=== PATIENT | male | born 1965 | race Caucasian/White ===

== ENCOUNTER → 2018-01-27 08:48 | Outpatient (CLI) | payer BC | END | disposition home or self-care (01) | LOC: D.NM 08:48 | DX: R10.11 Right upper quadrant pain (principal) ==

== ENCOUNTER 2018-07-06 09:54 | Inpatient (IN) | payer BC ==
[~2018-07-06] VITALS: Ht 182.9 cm; Wt 85.7 kg
--- NOTE | ~2018-07-06 | OP ---
PATIENT NAME: CHAIM MENDOZA MEDICAL RECORD: [id number] :67 LOCATION:D[id number] ADMISSION DATE:07/06/18 SURGEON: SARAH BEAVER MD DATE OF OPERATION: 07/06/2018 PREOPERATIVE DIAGNOSES: Severe degenerative disc disease at L5-S1 with segmental instability at L5-S1. POSTOPERATIVE DIAGNOSES: Severe degenerative disc disease at L5-S1 with segmental instability at L5-S1. PROCEDURE: Anterior lumbar interbody fusion at L5-S1 with anterior lumbar plate and screws, interbody cage with PEEK cage from the Zavation spine, bone allograft with bone stem cells using Cindi DBM with viable cells, Zavation 13 mm cages, 15 degrees lordosis and 33 mm wide, 30 mm screws. CO-SURGEONS: Sarah Beaver MD and Cordell Akins MD DESCRIPTION OF TECHNIQUE: After Dr. Akins exposed the anterior lumbar spine and incised the L5-S1 interspace, prepared the endplates with curettes and Haskins elevators, trialed several trials until an appropriate size cage was determined to be a 30 mm height cage with 33 mm wide and 15 degrees lordosis, good position of the cage was confirmed with a fluoroscopic x-ray. Prior to placing the cage in the interspace, the endplates were prepared with curettes and bone stem cells were placed in the inner portion of the cage. The 30 mm screws were placed through the holes in the plate, which anchored the cage in place. The locking cams were tightened down over the screw heads. Meticulous hemostasis was maintained throughout the wound. The wound was then closed by Dr. Akins. The patient tolerated the procedure well, was taken to recovery. All counts were reported as correct. Estimated blood loss was minimal. TRANSINT:[id number] Voice Confirmation ID: [id number] DOCUMENT ID: [id number] SARAH BEAVER MD at 2051 CC: [id number] DICTATION DATE: 07/06/18 2315 WASH OIL PUMP OPERATOR HELPER: 07/07/18 0159 ADM IN [address] [place] [address]
--- NOTE | ~2018-07-06 | OP ---
PATIENT NAME: CHAIM MENDOZA MEDICAL RECORD: [id number] :67 LOCATION:D.[facility] ADMISSION DATE:07/06/18 SURGEON: CESAR BUENO MD DATE OF OPERATION: 07/06/2018 This is a cosurgeon case. PREOPERATIVE DIAGNOSES: Severe degenerative disc disease at L5-S1 with segmental instability at L5-S1. POSTOPERATIVE DIAGNOSES: Severe degenerative disc disease at L5-S1 with segmental instability at L5-S1. PROCEDURE: Anterior approach for lumbar interbody fusion at L5-S1. This is a cosurgeon case. The neurosurgeon was Dr. Demetrio Hill. The access general surgeon was Dr. Cesar Bueno. For the description of the construct please see Dr. Hill's note. I was present through the entire operation from the initial skin incision to the final closure. I never left the operating room and was present and assisted Dr. Hill during insertion of the construct. DESCRIPTION OF THE PROCEDURE: The patient was conveyed to the operating room electively on 07/06/2018. General anesthesia was induced by the anesthesia staff. The abdomen was sterilely prepped and draped. Utilizing the C-arm and visualizing the lower lumbar spine laterally, we identified the L5-S1 interspace and utilizing a metallic marker, we identified the angulation of the L5-S1 interspace and where this under fluoroscopy met the anterior abdominal wall skin. This aided me in guiding my incision for approach to the L5-S1 disc space. This was marked on the patient's abdomen. An incision was accomplished in the midline and this was a transverse incision. Sharp dissection was carried down through skin and subcutaneous tissue as well as Suly's fascia. The linea alba was incised in the midline. I then elevated the left rectus abdominis muscle. Creating an extraperitoneal plane, I continued around on the left side. The round ligament was identified and divided. The transversalis fascia was identified and divided. I elevated the epigastric vein. The visceral sac was then pulled to the left. I identified the ureter. The iliac artery and vein were identified. The ureter was protected and undamaged through the entire operation. I identified the L5-S1 disc space. The MARS retractor was then fixated above the incision and the retractor blades were placed. We elevated the bifurcation of the inferior vena cava as well as both common iliac veins. This exposed the L5-S1 disc space. The median sacral vein was cauterized with the bipolar cautery. Dr. Hill then inserted a needle into the L5-S1 disc space and this disc space was confirmed radiographically. I was present and retracted venous structures away from Dr. Hill's operative field while he performed the discectomy and placement of the spinal construct. I was with him during this entire procedure and assisted him with retraction of tissue away from his operative site. Once he was finished with insertion of the construct and was satisfied with how it appeared radiographically, I went about closing the abdomen. I released the retractors. There was no bleeding. I identified the left ureter and it was undamaged during the procedure. I noted no evidence of a DVT in the left iliac venous system. There appeared to have been no intestinal injury. No injury to the bladder. OPERATIVE REPORT [id number] CHAIM MENDOZA The linea alba was closed in the midline with a running looped 0 PDS from the cephalad and caudad directions. Suly's fascia was approximated with interrupted 3-0 Vicryls. The subdermis was approximated with interrupted 3-0 Vicryls. The skin was approximated with a running intracuticular 3-0 Vicryl. Benzoin and Steri-Strips were applied. The patient was then extubated and conveyed to post-anesthesia care unit where he was in stable condition. TRANSINT:[id number] Voice Confirmation ID: [id number] DOCUMENT ID: [id number] CESAR BUENO MD at 1004 CC: [id number] DICTATION DATE: 07/09/18 0850 CURVE SAW OPERATOR: 07/09/18 0938 DIS IN 07/08/18 [id number] [place] [address]
[2018-07-06] MEDS ORDERED: CELEBREX200 MG PO (11:02)
[2018-07-06] MEDS ORDERED: ENDOCET 10-3251 TAB PO (11:03)
[2018-07-06] MEDS ORDERED: HYDROCODON-ACE1 EAC7 PO (11:04)
[2018-07-06] MEDS ORDERED: NEXIUM20 MG PO (11:05)
[2018-07-06] MEDS ORDERED: FOLBIC RF TABL1 EACH PO (11:06)
[2018-07-06 11:32] LABS: HEMATOCRIT 48.2 % (42.0-54.0); HEMOGLOBIN 17.5 g/dL (13.5-17.5); MCH 36.2 pg (26.0-34.0); MCHC 36.3 g/dL (31.0-37.0); MCV 99.8 fL (80.0-100.0); RBC 4.83 10x6/uL (4.20-6.10); RDW 13.3 % (11.5-14.5); WBC 6.5 10x3/uL (4.8-10.8)
[2018-07-06 11:40] VITALS: BP 161/87; BMI 25.8
[2018-07-06 23:45] VITALS: BP 154/91
[2018-07-07] VITALS (13 sets, daily range): BP systolic 103–155; BP diastolic 71–95; Ht 182.9 cm; Wt 85.7 kg
[2018-07-08 04:00] VITALS: BP 145/75
[2018-07-08] MEDS ORDERED: HYDROCODONE-APA1 TAB PO (08:32)
[2018-07-08 08:40] VITALS: BP 130/62
== END 2018-07-08 10:37 | disposition home or self-care (01) | DRG 460 ==
LOC: D.OPS 09:54 → D.PAN 12:15 → D.CVICU 22:12 → D.OPS 22:13 → D.CVICU 22:13 → D.MS 22:13
PROVIDERS: Anesthesiology; Neurological Surgery
PROC: 0SG30A0 Fusion of Lumbosacral Joint with Interbody Fusion Device, Anterior Approach, Anterior Column, Open Approach (ICD-10-PCS; principal; 2018-07-06 12:15)
DX: M51.37 Other intervertebral disc degeneration, lumbosacral region (principal); M53.2X7 Spinal instabilities, lumbosacral region; K21.9 Gastro-esophageal reflux disease without esophagitis; Z72.89 Other problems related to lifestyle; G89.29 Other chronic pain; F17.200 Nicotine dependence, unspecified, uncomplicated

== ENCOUNTER 2019-02-17 09:47 | Day surgery (SDC) | payer BC ==
[~2019-02-17] VITALS: Ht 182.9 cm; Wt 83.9 kg
--- NOTE | ~2019-02-17 | OP ---
PATIENT NAME: CHAIM MENDOZA MEDICAL RECORD: [id number] :67 LOCATION:[facility] ADMISSION DATE: SURGEON: SARAH HILL MD DATE OF OPERATION: 02/17/2019 PREOPERATIVE DIAGNOSES: Lumbar spinal stenosis and foraminal stenosis, L5-S1 left secondary to disc protrusion L5-S1, left. 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 SURGEON: Sarah Hill MD PROCEDURES: Lumbar laminotomy, medial facetectomy, and foraminotomy at L5-S1 on the left with METRx retractor system. DESCRIPTION AND TECHNIQUE: After induction of general endotracheal anesthesia, the patient was rolled prone on a Woody frame. Lumbar spine was prepped and draped in the usual sterile fashion. Fluoroscopic x-ray and spinal needle localized the L5-S1 interspace on the left side. A stab incision was created with #11 blade and a series of dilators were used to advance a METRx retractor to the L5-S1 interspace on the left side. Level was confirmed with fluoroscopic x-ray. A microscope and Midas Colton drill were used to perform laminotomy, medial facetectomy and foraminotomy at L5-S1 on the left. Hypertrophied ligamentum flavum was removed with Cloward rongeurs. Following this, the S1 nerve root was identified and found to be encased in scar tissue. This was removed with Cloward rongeurs and microdissectors. The L5-S1 disc space was explored. There is a disc protrusion just deep to the left L5-S1 nerve root. This was freed from the nerve root with microdissection and microscopic illumination and disc space was incised and disc material was removed with pituitary rongeurs. Following anesthesia, the S1 nerve root appeared to be completely free of scar tissue. Meticulous hemostasis was maintained throughout the wound. The wound was irrigated with copious amounts of Ancef irrigant solution. The retractor was removed. The fascia was closed with 2-0 Vicryl suture, the subdermal layer was closed with suture. The skin was closed with nneka. A sterile dressing was applied to the wound. The patient was awakened in good condition and taken to the recovery. All counts were reported as correct. Estimated blood loss was minimal. TRANSINT:[id number] Voice Confirmation ID: [id number] DOCUMENT ID: [id number] OPERATIVE REPORT [id number] CHAIM MENDOZA JOHN MD CC: [id number] DICTATION DATE: 03/07/192148 DIET ATTENDANT: 03/08/19 0029 [facility] SDC 02/17/19 [address] [place] [address]
[~2019-02-17 09:47] MED LIST: CELEBREX200 MG PO; ENDOCET 10-3251 TAB PO; FOLBIC RF TABL1 EACH PO; HYDROCODON-ACE1 EAC7 PO; HYDROCODONE-APA1 TAB PO; NEXIUM20 MG PO
[2019-02-17 11:03] VITALS: BP 118/74; Ht 182.9 cm; Wt 83.9 kg
--- NOTE | 2019-02-17 15:05 | NUR ---
NO NUMBNESS OR TINGLING REPORTED EQUAL STRENGHTS BOTH LOWER EXTREMETIES
== END 2019-02-17 16:38 | disposition home or self-care (01) ==
LOC: D.OPS 09:47
PROVIDERS: ATTEND Neurological Surgery
DX: M48.061 Spinal stenosis, lumbar region without neurogenic claudication (principal); M51.26 Other intervertebral disc displacement, lumbar region

== ENCOUNTER → 2019-03-09 10:28 | Outpatient (CLI) | payer BC ==
[2019-02-17 11:03] VITALS: BMI 25.1
== END | disposition home or self-care (01) ==
LOC: D.CT 10:28
PROVIDERS: ATTEND Surgery
DX: I73.9 Peripheral vascular disease, unspecified (principal)

== ENCOUNTER 2019-03-23 11:20 | Outpatient (CLI) | payer BC ==
[~2019-03-23] VITALS: Ht 182.9 cm; Wt 81.8 kg
--- NOTE | ~2019-03-23 | HEMODYNAMI ---
PATIENT:CHAIM MENDOZA MEDICAL RECORD: [id number] : 67 LOCATION:[facility] ADMISSION DATE: 03/23/19 Generatedon:03/23/201914:50 Patient name: CHAIM MENDOZA Patient #: [id number] SSN: : 1965 Date of study: 03/23/2019 Page: Of Hemodynamic Procedure Report Patient Data Patient Demographics Procedure consent was obtained First Name: CHAIM Gender: Male Last Name: KELLY : 1965 [facility] Initial: EJ Age: 53 year(s) Patient #: [id number] Race: Unknown Additional ID: [id number] Contact details Address: [address] [place] [address] ROAD State: [place] City: [place] Zip code: [address] Past Medical History Allergies: No known allergies Admission Admission Data Admission Date: 03/23/2019 Admission Time: 11:20 Weight (lbs.): 188 Weight (kg.): 85.28 Lab Results Lab Result Date: 03/23/2019 Lab Result Time: 0:00 Biochemistry Name Units Result Min Max BUN mg/dl 10 --(-*--)-- 7 18 Creatinine mg/dl 0.8 --(-*--)-- 0.6 1.3 CBC Name Units Result Min Max Hematocrit % 44.6 --(*---)-- 42 54 Hemoglobin g/dl 15.7 --(--*-)-- 13.5 17.5 Procedure Procedure Types Cath Procedure Diagnostic Procedure LHC LHC w/Coronaries Peripheral Cath Diagnostic Procedure Candy Cooker Helper Peripheral Procedures Zpqxn-Qrtlysz-Svb-Off Procedure Description Procedure Date Procedure Date: 03/23/2019 Procedure Start Time: 14:32 Procedure End Time: 14:50 Procedure Staff Name Function Vincent Rao MD Performing Physician Elly Houston RT Monitor Lev Bansal RT Monitor Santiago Cook RT Scrub Gallo Dennis RN Nurse Procedure Data Cath Procedure Fluoroscopy Diagnostic fluoroscopy Total fluoroscopy Time: 2.1 time: 2.1 min min Diagnostic fluoroscopy Total fluoroscopy dose: 610 dose: 610 mGy mGy Contrast Material Contrast Material Type Amount (ml) Isovue 300 165 Entry Location Entry Primary Successful Side Size Upsize Upsize Entry Closure Succes sful Closure Location (Fr) 1 (Fr) 2 (Fr) Remarks Device Remarks Femoral Right 5 Fr Exoseal artery Estimated blood loss: 10 ml Diagnostic catheters Device Type Used For End Catheter Placement MULTIPACK JL 4.0 5Fr Procedure catheter MULTIPACK 3DRC 5Fr Procedure catheter MULTIPACK Pigtail 5 Fr Procedure catheter Procedure Complications No complications Procedure Medications Medication Administration Route Dosage 0.9% NaCl I.V. 100 ml/hr Oxygen etCO2 Nasal cannula 2 l/min Heparin Flush Bag added to field 2 bags (1000units/500ml NS) Lidocaine 2% added to field 20 Versed I.V. 1 mg Fentanyl I.V. 50 mcg Versed I.V. 1 mg Hemodynamics Rest HGB: 15.7 (g/dl) Heart Rate: 65 (bpm) Pressure Samples Time Site Value (mmHg) Purpose Heart Use Rate(bpm) 14:34 AO 130/71(96) Snapshot 80 14:38 LV 136/-9,15 Snapshot 85 14:42 AO 121/67(93) Snapshot 85 Snapshots Pre Cath Intra NCS Post Cath Vital Signs Time Heart Resp SPO2 etCO2 NIBP (mmHg) Rhythm Pain Sedation Rate (ipm) (%) (mmHg) Status Level (bpm) 14:13:18 66 14 100 0 165/81(135) NSR 0 (11) 10(A) , No pain 14:17:36 73 13 100 34.4 148/81(114) NSR 0 (11) 10(A) , No pain 14:21:52 76 12 100 34.4 146/82(110) NSR 0 (11) 10(A) , No pain 14:26:06 77 12 100 32.9 135/86(113) NSR 0 (11) 10(A) , No pain 14:30:18 73 21 100 29.2 144/81(117) NSR 0 (11) 10(A) , No pain 14:34:32 77 15 100 32.9 137/85(111) NSR 0 (11) 10(A) , No pain 14:38:46 85 18 99 31.4 136/78(102) NSR 0 (11) 10(A) , No pain 14:42:58 87 20 99 32.2 133/76(106) NSR 0 (11) 9(A) , No pain 14:47:10 80 15 100 32.9 138/78(111) NSR 0 (11) 9(A) , No pain Medications Time Medication Route Dose Verified Delivered Reason Notes Eff ectiveness by by 14:11:32 0.9% NaCl I.V. 100 Gallo Gallo Per ml/hr Sonny Dennis physician RN RN 14:11:43 Oxygen etCO2 2 Gallo Gallo for low 02 Nasal l/min Lorigan Lorigan sats cannula RN RN 14:11:54 Heparin Flush added 2 Gallo Gallo used for Bag to bags Lorigan Lorigan procedure (1000units/500ml field RN RN NS) 14:12:04 Lidocaine 2% added 20ml Gallo Gallo for local to vial Lorigan Lorigan anesthetic field RN RN 14:31:56 Versed I.V. 1 mg Gallo Gallo for Lorigan Lorigan sedation RN RN 14:32:04 Fentanyl I.V. 50 Gallo Gallo for mcg Lorigan Lorigan sedation RN RN 14:33:22 Versed I.V. 1 mg Gallo Gallo for Lorigan Lorigan sedation RN wedding coordinator Log Time Note 13:35:56 Signed procedure consent form obtained from patient. 13:35:57 Diagnostic Cath status Elective 13:35:58 Time tracking: Regular hours (M-F 7:00 - 5:00) 13:36:02 Plan of Care:Hemodynamics will remain stable., Cardiac rhythm will remain stable., Comfort level will be maintained., Respiratory function will remain adequate., Patient/ family verbilizes understanding of procedure., Procedure tolerated without complication., Recovers from procedure without complications.. 13:36:10 H&P Date Dictated: 03/18/2019 Within 30 days and on chart., H&P Addendum completed by physician on day of procedure. (MUST COMPLETE FOR ALL OUTPATIENTS). 13:38:40 Patient Weight : 188 lbs 13:39:15 Patient allergic to No known allergies 13:39:51 Lab Result : BUN 10 mg/dl 13:39:51 Lab Result : Hemoglobin 15.7 g/dl 13:39:51 Lab Result : Creatinine 0.8 mg/dl 13:39:51 Lab Result : Hematocrit 44.6 % 13:54:24 Gallo Dennis RN sent for patient. Start room use. 14:04:11 Patient received from Pre/Post Procedure Room to CCL 2 Alert and oriented. Tansferred to table in Supine position. 14:04:13 Warm blankets applied, and blake hugger turned on for patient comfort. 14:04:14 Correct patient and procedure confirmed by team. 14:04:15 ECG and BP/O2 sat monitors applied to patient. 14:11:32 0.9% NaCl 100 ml/hr I.V. was administered by Gallo Dennis RN; Per physician; 14:11:43 Oxygen 2 l/min etCO2 Nasal cannula was administered by Gallo Dennis RN; for low 02 sats; 14:11:54 Heparin Flush Bag (1000units/500ml NS) 2 bags added to field was administered by Gallo Dennis RN; used for procedure; 14:12:04 Lidocaine 2% 20ml vial added to field was administered by Gallo Dennis RN; for local anesthetic; 14:12:08 Vital chart was started 14:13:12 Baseline sample Acquired. 14:13:18 Rhythm: sinus rhythm 14:13:18 Full Disclosure recording started 14:13:19 Pre-procedure instructions explained to patient. 14:13:19 Pre-op teaching completed and patient verbalized understanding. 14:13:21 Family in patients room. 14:13:22 Patient NPO since Midnight. 14:13:24 Is patient on blood thinner?No 14:13:25 Patient diabetic? No. 14:13:29 Previous problem with sedation/anesthesia? No ? 14:13:31 Snore? Yes 14:13:31 Sleep apnea? No 14:13:32 Deviated septum? No 14:13:33 Opens mouth fully? Yes 14:13:34 Sticks out tongue? Yes 14:13:36 Airway obstruction? No ? 14:13:38 Dentures? No ? 14:13:41 Pre procedure: right dorsailis pedis pulse 1+ Palpable, but thready & weak; easily obliterated 14:13:45 Pre procedure: left dorsailis pedis pulse Doppler 14:13:47 Patient pain scale 0/10 ?. 14:13:49 IV patent on arrival in left hand with 0.9% NaCl at O. 14:13:51 Lab results completed and on chart. 14:13:57 Bilateral groins area was prepped with chlora-prep and draped in sterile fashion 14:13:58 Alarms reviewed by R. N. 14:13:59 Sharps counted by scrub and verified by R.N. 14:14:02 Use device set Femoral Dx 14:14:03 ACIST Syringe (32129) opened to sterile field. 14:14:04 Bag Decanter (2002S) opened to sterile field. 14:14:05 ACIST Hand Control (92701) opened to sterile field. 14:14:06 ACIST Manifold (91442) opened to sterile field. 14:14:06 Tegaderm 4 x 4 (1626W) opened to sterile field. 14:14:10 Medline Cath Pack ([id number]) opened to sterile field. 14:14:11 DIAGNOSTIC WIRE .035 260cm J wire (238879) opened to sterile field. 14:14:12 DIAGNOSTIC Multipack 5Fr catheter set (TE5752) opened to sterile field. 14:14:13 SHEATH 5FR [place] (MXT487) opened to sterile field. 14:20:50 Procedure type changed to Cath procedure, Diagnostic procedure, LHC, LHC w/Coronaries, Peripheral Cath Diagnostic Procedure, Candy Cooker Helper Peripheral Procedures, Heyjg-Nwaunbt-Fzl-Off 14:27:51 --------ALL STOP TIME OUT------ 14:27:52 Final Timeout: patient, procedure, and site verified with staff and physician. All members of the team are in agreement. 14:28:21 Right groin site verified by team. 14:28:26 Maximum allowable Isovue 300 dose 300ml. Physician notified. (300ml for normal creatinines. For patients with creatinine of 1.7 or higher multiply weight(kg) x 5 divided by creatinine.) 14:28:31 Fire Safety Assessment: A--An alcohol-based skin anteseptic being used preoperatively., C--Open oxygen or nitrous oxide is being used., D--An ESU, laser, or fiber-optic light is being used. 14:28:34 Physical assessment completed. ASA score P 2 - A patient with mild systemic disease as per Vincent Rao MD. 14:28:39 Sedation plan: IV Moderate Sedation Medication:Versed, Fentanyl 14:29:24 Zero performed for pressure channel P1 14:31:56 Versed 1 mg I.V. was administered by Gallo Dennis RN; for sedation; 14:32:04 Fentanyl 50 mcg I.V. was administered by Gallo Dennis RN; for sedation; 14:32:42 Procedure started. 14:32:45 Local anesthetic to right femoral artery with Lidocaine 2% by Vincent Rao MD.INITIAL ACCESS ONLY 14:33:22 Versed 1 mg I.V. was administered by Gallo Dennis RN; for sedation; 14:33:27 A 5 Fr sheath was inserted into the Right Femoral artery 14:33:39 A MULTIPACK JL 4.0 5Fr catheter was advanced over the wire and used for Procedure. 14:34:50 LCA angiography performed. 14:35:57 Catheter removed. 14:36:29 A MULTIPACK 3DRC 5Fr catheter was advanced over the wire and used for Procedure. 14:36:57 RCA angiography performed. 14:37:40 Catheter removed. 14:37:50 A MULTIPACK Pigtail 5 Fr catheter was advanced over the wire and used for Procedure. 14:40:10 LV angiography performed. 14:40:50 LV gram done using MASON 14:40:55 EF : 55 % 14:41:09 LV hemodynamics recorded. 14:41:11 Injector settings: Ml/sec: 10, Volume: 20, 14:41:37 Left leg occluded at bifurcation. 14:42:00 Right leg runoff performed. 14:45:35 Catheter removed. 14:45:37 EXOSEAL 5Fr (EX500) opened to sterile field. 14:45:46 Sheath removed intact; hemostasis achieved with Exoseal to the Right Femoral artery. 14:46:04 Procedure ended.(Physican Out) 14:46:30 Fluoroscopy time 02.10 minutes. 14:46:34 Fluoroscopy dose: 610 mGy 14:46:34 Flurop Dose total: 610 14:46:50 Contrast amount:Isovue 300 165ml. 14:46:51 Sharps counted by scrub and verified by R.N. 14:46:52 Insertion/operative site no bleeding no hematoma. 14:46:58 Post-op/insertion site Right Femoral artery dressed using a 4 x 4 and Tegaderm. 14:46:59 Post Procedure Pulses reassessed and unchanged 14:47:02 Post-procedure physical assessment completed. ASA score P 2 - A patient with mild systemic disease as per Vincent Rao MD. 14:47:05 Post procedure rhythm: unchanged. 14:47:07 Estimated blood loss: 10 ml 14:47:09 Post procedure instruction explained to patient.Patient verbalizes understanding. 14:47:09 Patient needs reinforcement of post procedure teaching. 14:47:11 Procedure and supply charges have been captured, reviewed, submitted and are correct. 14:47:28 Procedure Complication : No complications 14:47:31 Vital chart was stopped 14:47:31 See physician's report for complete and final results. 14:47:36 Report given to Pre/Post Procedure Room. 14:47:40 Patient transfered to PCU with Stretcher. 14:50:14 Procedure ended. 14:50:14 Full Disclosure recording stopped 14:50:23 End room use (Document Last) Device Usage Item Name Manufacture Quantity Catalog Hospital Part Current Minimal L ot# / Number Charge Number Stock Stock Serial# Code ACIST Acist 1 [id number] 071914 950422 736292 20 Syringe Medical (48442) Systems Inc Bag Microtek 1 2001S 275312 79105 905368 5 Decanter Medical Inc. (2001S) ACIST Hand Acist 1 35232 813577 379476 036460 5 Control Medical (85927) Systems Inc ACIST Acist 1 15890 469859 816269 147253 5 Manifold Medical (64920) Systems Inc Tegaderm 4 3M 1 1626W 356786 706669 233473 5 x 4 (1626W) Medline Medline 1 [id number] 377424 18761 091164 5 Cath Pack ([id number]) DIAGNOSTIC [facility] 1 626334 095945 517244 036194 30 WIRE .035 260cm J wire (772047) DIAGNOSTIC Cardinal 1 KX9593 728570 27965 053449 30 Multipack Health 5Fr catheter set (WR6974) SHEATH 5FR Terumo 1 TVM706 891688 247112 774196 5 [place] (JCO773) MULTIPACK Cardinal 1 998916 5 JL 4.0 5Fr Health catheter MULTIPACK Cardinal 1 942939 5 3DRC 5Fr Health catheter MULTIPACK Cardinal 1 040965 5 Pigtail 5 Health Fr catheter EXOSEAL 5Fr Cardinal 1 EX500 605827 371224 467600 10 (EX500) Health Signature Audit [place] Stage Time Signature Unsigned Intra-Procedure 03/23/2019 Lev Bansal 2:50:51 PM RT(R) Signatures Monitor : Elly Houston Signature : RT Date : Time : Monitor : Lev Bansal RT Signature : Date : Time : [address] [place] [address]
--- NOTE | ~2019-03-23 | OP ---
PATIENT NAME: CHAIM MENDOZA MEDICAL RECORD: [id number] :67 LOCATION:D.CAT ADMISSION DATE: SURGEON: JENNIFER BHAGAT MD DATE OF OPERATION: 03/23/2019 PROCEDURE: Left heart catheterization, selective coronary angiography plus AFRO, right femoral artery approach. CATHETERS: A 5-Finnish sheath, 5/4 left and right Sarbjit, 5/4 pig. The procedure was well tolerated. The patient was returned to florian. Sheath was removed. ExoSeal device was placed. FINDINGS: Left ventriculography in 30-degree MASON view: Normal wall motion. Normal systolic function. CORONARY ANATOMY: LEFT MAIN: Left main is free of disease. LAD: It has luminal irregularities, but no flow obstructive disease. CIRCUMFLEX: Circumflex to OM system is free of significant disease. RIGHT CORONARY ARTERY: Again, luminal irregularity. No flow obstructive disease. Catheter was then withdrawn proximally to the level of the renal arteries and AFRO was performed. Abdominal aorta shows no evidence of dissection, no significant atherosclerotic disease, and no evidence of aneurysm. RIGHT ILIAC SYSTEM: Right iliac system including internal and external is free of disease. Right femoral system including common, superficial, and deep are widely patent with good 2-vessel runoff distally. LEFT SYSTEM: Left iliac is totally occluded at its proximal portion. This is a flush occlusion without pathway for guidewire and interventional wires. There is late filling distally. 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 This does not appear amenable to percutaneous revascularization from a cardiovascular standpoint. TRANSINT:[id number] Voice Confirmation ID: [id number] DOCUMENT ID: [id number] JENNIFER BHAGAT MD CC: [id number] DICTATION DATE: 03/23/19 1500 BDR: 03/23/19 1841 DEP CLI 03/23/19 [facility] [address] [place] [id number]
[2019-03-23 11:46] VITALS: BP 149/74; Ht 182.9 cm; Wt 81.8 kg
[2019-03-23 12:03] LABS: BASOPHILS 0.3 % (0-2); EOSINOPHILS 2.1 % (0-7); HEMATOCRIT 44.6 % (42.0-54.0); HEMOGLOBIN 15.7 g/dL (13.5-17.5); IMMATURE GRANULOCYTES 0.2 % (0-5); LYMPHOCYTES 35.5 % (15-50); MCH 32.2 pg (26.0-34.0); MCHC 35.2 g/dL (31.0-37.0); MCV 91.6 fL (80.0-100.0); MEAN PLATELET VOLUME 8.8 fL (7.4-10.4); MONOCYTES 11.1 % (2-11); NEUTROPHILS 50.8 % (40-80); PLATELET COUNT 258 10x3/uL (130-400); RBC 4.87 10x6/uL (4.20-6.10); WBC 6.6 10x3/uL (4.8-10.8)
[2019-03-23 12:21] LABS: CALC OSMOLALITY 278 mosm/kg (275-300); CALCIUM 8.9 mg/dL (8.5-10.1); CARBON DIOXIDE 25.7 mmol/L (21.0-32.0); CHLORIDE - SERUM 103 mmol/L (98-107); CREATININE - SERUM 0.8 mg/dL (0.6-1.3); GLUCOSE 118 mg/dL (74-106); SODIUM 140 mmol/L (136-145); UREA NITROGEN 10 mg/dL (7-18); eGFR NON AFRICAN AMERICAN > 90 mL/min (90-120)
--- NOTE | 2019-03-23 15:05 | NUR ---
RECIEVED TO ROOM VIA STRETCHER FROM [facility] CREWMEMBER WITH 5 FR EXOSEAL R/GROIN CDI NO BLEEDING OR HEMATOMA NOTED. INSTRUCTED PATIENT TO KEEP HEAD FLAT ON PILLOW WITH RLE STRAIGHT.
--- NOTE | 2019-03-23 15:14 | NUR ---
5 FR EXOSEAL R/GROIN IS CDI WITH VSS PATIENT DENIED NEEDS AT THIS TIME. INSTRUCTED PATIENT TO KEEP HEAD FLAT ON PILLOW WITH RLE STRAIGHT
--- NOTE | 2019-03-23 15:21 | NUR ---
5 FR EXOSEAL R/GROIN REMAINS CDI WITH CHEST PAIN DENIED. INSTRUCTED PATIENT TO KEEP HEAD FLAT ON PILLOW WITH RLE STRAIGHT. CALL LIGHT IN REACH
--- NOTE | 2019-03-23 15:48 | NUR ---
PATIENT RESTING QUIETLY WITH EYES CLOSED HR 69 BP 112/63. 5 FR EXOSEAL R/GROIN IS CDI NO BLEEDING OR HEMATOMA. CALL LIGHT IN REACH
--- NOTE | 2019-03-23 15:53 | NUR ---
REPOSITIONED TO [facility] UP 30 FOR COMFORT. SANDWICH AND SODA TO BEDSIDE WITH NAUSEA DENIED
--- NOTE | 2019-03-23 16:24 | NUR ---
LEFT ARM PIV D/C'D WITH CATH TIP INTACT. PT TOLERATED WELL. VSS. PT INSTRUCTED TO GET UP AND DRESSED. RIGHT GROIN DRESSING C/D/I. NO S/S OF HEMATOMA NOTED.
--- NOTE | 2019-03-23 16:35 | NUR ---
DISCUSSED DISCHARGE INSTRUCTIONS WITH PT AND PT'S FAMILY. THEY VOICED UNDERSTANDING. RIGHT GROIN DRESSING C/D/I. NO S/S OF HEMATOMA NOTED. PT AMBULATED TO RESTROOM AND VOIDED WITHOUT DIFFICULTY. STEADY GAIT NOTED.
--- NOTE | 2019-03-23 16:40 | NUR ---
PT TAKEN OUT TO CAR BY WHEELCHAIR. NO S/S OF DISTRESS NOTED. ALL BELONGINGS AND PAPERWORK IN HAND.
== END 2019-03-23 16:40 | disposition home or self-care (01) ==
LOC: D.CATH 11:20
PROVIDERS: ATTEND Internal Medicine Interventional Cardiology
DX: I70.212 Atherosclerosis of native arteries of extremities with intermittent claudication, left leg (principal); Z01.812 Encounter for preprocedural laboratory examination

== ENCOUNTER 2019-04-06 07:26 | Outpatient (CLI) | payer BC ==
[~2019-04-06] VITALS: Ht 182.9 cm; Wt 81.8 kg
[2019-04-06] VITALS (13 sets, daily range): BP systolic 127–149; BP diastolic 52–86; BMI 24.4
--- NOTE | ~2019-04-06 | HEMODYNAMI ---
PATIENT:MAXIMO MENDOZA MEDICAL RECORD: [id number] : 67 [facility] ADMISSION DATE: 04/06/19 Generatedon:04/06/201916:38 Patient name: MAXIMO MENDOZA Patient #: [id number] SSN: : 1965 Date of study: 04/06/2019 Page: Of Hemodynamic Procedure Report Patient Data Patient Demographics Procedure consent was obtained First Name: MAXIMO Gender: Male Last Name: KELLY : 1965 Middle Initial: EJ Age: 53 year(s) Patient #: [id number] Race: Unknown Additional ID: [id number] Contact details Address: [address] [place] [address] ROAD State: [place] City: [place] Zip code: [address] Past Medical History Allergies: No known allergies Admission Admission Data Admission Date: 04/06/2019 Admission Time: 7:26 Room #: [facility] Procedure Procedure Types Cath Procedure Peripheral Cath Diagnostic Procedure Abd/Extremity Extremities Procedure Description Procedure Date Procedure Date: 04/06/2019 Procedure Start Time: 15:52 Procedure Staff Name Function Breezy Del Rio RT Monitor Maximo Adames MD Performing Physician Mariaa Weller RN Nurse PATRICE JOYA RT Scrub Procedure Data Cath Procedure Fluoroscopy Diagnostic fluoroscopy Total fluoroscopy Time: time: 11.4 min 11.4 min Diagnostic fluoroscopy Total fluoroscopy dose: 462 dose: 462 mGy mGy Contrast Material Contrast Material Type Amount (ml) Isovue 300 135 Diagnostic catheters Device Type Used For End Catheter Placement Cook CHG-B 5FR 65CM catheter ([id number]) Procedure Medications Medication Administration Route Dosage Heparin Flush Bag added to field 1 bags (1000units/500ml NS) Lidocaine 1% added to field 20 Versed I.V. 1 mg Fentanyl I.V. 50 mcg Fentanyl I.V. 50 mcg Versed I.V. 1 mg Hemodynamics Rest Heart Rate: 59 (bpm) Snapshots Pre Cath Intra NCS Post Cath Vital Signs Time Heart Resp SPO2 etCO2 NIBP (mmHg) Rhythm Pain Sedation Rate (ipm) (%) (mmHg) Status Level (bpm) 15:45:33 67 18 99 31.3 171/83(135) NSR 0 (11) 10(A) , No pain 15:49:55 69 13 98 29 166/87(127) NSR 0 (11) 10(A) , No pain 15:54:15 58 14 98 32.7 159/93(129) NSR 0 (11) 10(A) , No pain 15:58:33 69 16 98 29.8 154/87(126) NSR 0 (11) 10(A) , No pain 16:02:49 62 13 98 32 155/89(118) NSR 0 (11) 10(A) , No pain 16:07:03 80 16 97 31.2 164/96(131) NSR 0 (11) 10(A) , No pain 16:11:11 72 15 98 29.8 156/97(116) NSR 0 (11) 10(A) , No pain 16:15:27 71 17 96 29.8 136/93(118) NSR 0 (11) 10(A) , No pain 16:20:26 80 17 96 31.2 Measuring NSR 0 (11) 10(A) , No pain 16:20:30 80 17 96 31.2 166/92(120) NSR 0 (11) 10(A) , No pain 16:22:05 75 17 96 30.5 146/95(118) NSR 0 (11) 10(A) , No pain 16:26:19 90 16 96 29 151/89(115) NSR 0 (11) 10(A) , No pain 16:30:33 84 22 96 27.5 158/98(120) NSR 0 (11) 10(A) , No pain 16:34:49 84 11 96 33.5 172/102(147) NSR 0 (11) 10(A) , No pain Medications Time Medication Route Dose Verified Delivered Reason Notes Effec tiveness by by 15:50:20 Heparin Flush added 1 Maximo Marsh used for Bag to bags Adames Adames procedure (1000units/500ml field MD CHOI NS) 15:50:43 Lidocaine 1% added 20ml Maximo Marsh used for to vial Adames Adames procedure field MD CHOI 16:11:30 Versed I.V. 1 mg Maximo Edwardsi used for Adames Weller juke box mechanic 16:11:45 Fentanyl I.V. 50 Maximo Mariaa for mcg Adames Weller RN sedation 16:21:20 Fentanyl I.V. 50 Maximo Mariaa for mcg Adames Weller RN sedation 16:21:29 Versed I.V. 1 mg Maximo Edwardsi used for Adames Weller juke box mechanic Procedure Log Time Note 15:32:53 Breezy Del Rio RT (R) (CV) sent for patient. Start room use. 15:33:01 Time tracking: Regular hours (M-F 7:00 - 5:00) 15:33:06 Plan of Care:Hemodynamics will remain stable., Cardiac rhythm will remain stable., Comfort level will be maintained., Respiratory function will remain adequate., Patient/ family verbilizes understanding of procedure., Procedure tolerated without complication., Recovers from procedure without complications.. 15:33:12 Patient received from CVICU to IR Alert and oriented. Tansferred to table in Supine position. 15:33:14 Correct patient and procedure confirmed by team. 15:33:15 Signed procedure consent form obtained from patient. 15:33:16 ECG and BP/O2 sat monitors applied to patient. 15:33:18 - 15:33:18 Full Disclosure recording started 15:33:21 H&P Date Dictated: 04/06/2019 H&P Addendum completed by physician on day of procedure. (MUST COMPLETE FOR ALL OUTPATIENTS). 15:33:23 Pre-op teaching completed and patient verbalized understanding. 15:33:23 Pre-procedure instructions explained to patient. 15:33:25 Family in waiting room. 15:33:27 Patient NPO since Midnight. 15:33:31 Is the patient allergic to Iodine/contrast media? No. 15:33:32 Is patient on blood thinner?Yes 15:33:41 ACC The patient was administered the following blood thiners within the last 24 hours: ACCHeparin 15:33:56 TPA INFUSION 15:38:36 Patient diabetic? No. 15:38:38 - 15:38:39 ----Pre-sedation anethsthesia assessment.---- 15:38:42 Previous problem with sedation/anesthesia? No ? 15:38:43 Snore? Yes 15:38:45 Sleep apnea? No 15:38:47 Deviated septum? No 15:38:49 Opens mouth fully? Yes 15:38:54 Sticks out tongue? Yes 15:38:57 Airway obstruction? No ? 15:38:59 Dentures? No ? 15:41:17 Pre procedure: right dorsailis pedis pulse Doppler 15:41:21 Pre procedure: left dorsailis pedis pulse Doppler 15:41:25 Pre procedure: right posterior tibial pulse None 15:41:28 Pre procedure: left posterior tibial pulse Doppler 15:41:33 Patient pain scale 0/10 NO. 15:41:39 IV patent on arrival in left hand with 0.45%NaCl at O. 15:41:49 Right groin area was prepped with betadine and draped in sterile fashio n 15:41:53 Alarms reviewed by R. N. 15:41:55 Sharps counted by scrub and verified by R.N. 15:41:58 Use device set IR Diagnostic 15:42:00 Bag Decanter () opened to sterile field. 15:42:01 Tegaderm 4 x 4 ([id number]) opened to sterile field. 15:42:01 Sterile Angiographic Pack opened to sterile field. 15:44:12 Vital chart was started 15:44:12 Baseline sample Acquired. 15:50:20 Heparin Flush Bag (1000units/500ml NS) 1 bags added to field was administered by Maximo Adames MD; used for procedure; 15:50:43 Lidocaine 1% 20ml vial added to field was administered by Maximo Adames MD; used for procedure; 15:52:04 Physician arrived 15:52:05 --------ALL STOP TIME OUT------ 15:52:06 Final Timeout: patient, procedure, and site verified with staff and physician. All members of the team are in agreement. 15:52:08 Right groin site verified by team. 15:52:14 Maximum allowable Isovue 300 dose 300ml. Physician notified. (300ml for normal creatinines. For patients with creatinine of 1.7 or higher multiply weight(kg) x 5 divided by creatinine.) 15:52:18 Fire Safety Assessment: A--An alcohol-based skin anteseptic being used preoperatively., C--Open oxygen or nitrous oxide is being used. 15:52:23 Sedation plan: IV Moderate Sedation Medication:Versed, Fentanyl 15:52:33 Procedure started. 15:56:52 GLIDE WIRE ANGLE 180cm (DE9145) opened to sterile field. 15:56:52 TORQUE DEVICE PLASTIC .038 ( TD01) opened to sterile field. 15:59:10 GLIDE CATHETER 5FR COBRA 65cm (CG502) opened to sterile field. 15:59:35 DOC .035 wire (Y65791) opened to sterile field. 16:01:31 A Azingo CHG-B 5FR 65CM catheter (V60480) was advanced over the wire and used for . 16:07:58 SHEATH 6FR Franklin (NRI447) opened to sterile field. 16:10:06 RICHTER 260 wire (G72981) opened to sterile field. 16:11:30 Versed 1 mg I.V. was administered by Mariaa Weller RN; used for procedure; 16:11:45 Fentanyl 50 mcg I.V. was administered by Mariaa Weller RN; for sedation; 16:14:28 Protege GPS 9 x 60 X 120 Stent ([id number]) was deployed across Undefined1 . 16:16:05 INFLATOR BasixTOUCH (FV7783) opened to sterile field. 16:20:16 Inflate balloon Inflation number: 1 A Evercross 8 x 4 x 135 Balloon ([id number]) was prepped and advanced across the Undefined1, then inflated to 8 MICHELINE for 0:04 (min:sec). 16:21:20 Fentanyl 50 mcg I.V. was administered by Mariaa Weller RN; for sedation; 16:21:29 Versed 1 mg I.V. was administered by Mariaa Weller RN; used for procedure; 16:28:41 ANGIOSEAL-[facility] PLUS 6 FR opened to sterile field. 16:30:54 Procedure ended.(Physican Out) 16:32:01 Fluoroscopy time 11.40 minutes. 16:32:05 Fluoroscopy dose: 462 mGy 16:32:05 Flurop Dose total: 462 16:32:08 Sharps counted by scrub and verified by R.N. 16:32:09 Insertion/operative site no bleeding no hematoma. 16:32:12 Post-op/insertion site Right Femoral artery dressed using a 4 x 4 and Tegaderm. 16:32:15 Post right femoral artery:stable 16:32:18 Post Procedure Pulses reassessed and unchanged 16:35:13 Post procedure instruction explained to patient.Patient verbalizes understanding. 16:35:14 Procedure and supply charges have been captured, reviewed, submitted an d are correct. 16:35:16 Report given to CVICU. 16:35:21 Patient transfered to CVICU with Bed. 16:35:46 Vital chart was stopped 16:35:51 Full Disclosure recording stopped 16:37:42 Contrast amount:Isovue 300 135ml. Intervention Summary Intervention Notes Time ActionType Lesion and Equipment Used Action# Pressure Duration Attributes 16:14:28 Deploy self Undefined1 Protege GPS 9 x 60 1 expanding X 120 Stent stent ([id number]) 16:20:16 Inflate Undefined1 Evercross 8 x 4 x 1 8 00:04 balloon 135 Balloon ([id number]) Device Usage Item Name Manufacture Quantity Catalog Number [facility] Part [facility] rent Minimal Lot# / Charge Number Stock Stock Serial# Code Bag Decanter Microtek 1 [id number] 22463 986 843 5 () Medical Inc. Sterile Cardinal 1 [id number] 816324 998 247 5 Angiographic Pack Health Tegaderm 4 x 4 3M 1 1626W 525600 547988 992 192 5 (1626W) TORQUE DEVICE Camargo 1 TD01 938581 757839 999 330 5 PLASTIC .038 ( Scientific TD01) GLIDE WIRE ANGLE Terumo 1 BU2130 459287 289011 999 618 5 180cm (TY5672) GLIDE CATHETER 5FR Terumo 1 CG502 011664 999 917 5 COBRA 65cm (CG502) DOC .035 wire Cook Medical 1 [id number] 663470 999 485 5 ([id number]) Azingo CHG-B 5FR TopTechPhoto 1 T98197 279374 572459 999 963 5 65CM catheter (S94901) SHEATH 6FR Terumo 1 OTO224 386420 069041 995 726 40 Franklin (RDN904) RICHTER 260 wire Cook Medical 1 W22813 552663 45181 999 583 5 (F66802) Protege GPS 9 x 60 Medtronic 1 [id number] 757005 258735 999 998 5 X 120 Stent ([id number]) INFLATOR Merit 1 MD2978 361490 160902 999 773 5 AudienceRate Ltd (DR9148) Evercross 8 x 4 x Medtronic 1 [id number] 515798 856961 999 993 5 [id number] 135 Balloon ([id number]) ANGIOSEAL-[facility] 1 [id number] 579670 482370 999 865 5 [id number] 6 FR Signature Audit Lawrence Stage Time Signature Unsigned Intra-Procedure 04/06/2019 Breezy Del Rio RT 4:35:41 PM Angelitoield RT (R) (CV) 04/06/2019 (R) (CV) 4:37:31 PM Intra-Procedure 04/06/2019 Breezy 4:38:02 PM Angelitoield RT (R) (CV) Signatures Monitor : Breezy Signature : Quang RT Date : Time : [facility] [address] [place] [address]
--- NOTE | ~2019-04-06 | HEMODYNAMI ---
PATIENT:MAXIMO MENDOZA MEDICAL RECORD: [id number] : 67 LOCATION:[facility] ADMISSION DATE: 04/06/19 Generatedon:04/06/201910:29 Patient name: MAXIMO MENDOZA Patient #: [id number] SSN: : 1965 Date of study: 04/06/2019 Page: Of Hemodynamic Procedure Report Patient Data Patient Demographics Procedure consent was obtained First Name: MAXIMO Gender: Male Last Name: KELLY : 1965 Middle Initial: EJ Age: 53 year(s) Patient #: [id number] Race: Unknown Additional ID: [id number] Contact details Address: [address] [place] [address] ROAD State: [place] City: [place] Zip code: [address] Past Medical History Allergies: No known allergies Admission Admission Data Admission Date: 04/06/2019 Admission Time: 7:26 Procedure Procedure Types Cath Procedure Peripheral Cath Diagnostic Procedure Abd/Extremity Extremities AFRO Lower Ext Arterio Procedure Description Procedure Date Procedure Date: 04/06/2019 Procedure Start Time: 9:42 Procedure Staff Name Function Maximo Adames MD Performing Physician Breezy Del Rio RT Monitor PATRICE JOYA RT Scrub Tatiana Syed RN Nurse Mariaa Weller RN Nurse Procedure Data Cath Procedure Fluoroscopy Diagnostic fluoroscopy Total fluoroscopy Time: 3.6 time: 3.6 min min Diagnostic fluoroscopy Total fluoroscopy dose: 209 dose: 209 mGy mGy Contrast Material Contrast Material Type Amount (ml) Isovue 300 60 Entry Location Entry Primary Successful Side Size Upsize Upsize Entry Closure Succes sful Closure Location (Fr) 1 (Fr) 2 (Fr) Remarks Device Remarks Femoral Right 5 Fr artery Diagnostic catheters Device Type Used For End Catheter Placement Merit ULTRA BOLUS FLUSH 5Fr 65CM catheter ([id number]) Angiodynamics SOS OMNI 2 NON B 5FR 65CM catheter ([id number]) Cook CHG-B 5FR 65CM catheter ([id number]) Procedure Medications Medication Administration Route Dosage Lidocaine 1% added to field 20 Heparin Flush Bag added to field 3 bags (1000units/500ml NS) Fentanyl 50 mcg Versed I.V. 1 mg Versed I.V. 1 mg Fentanyl 50 mcg Heparin Bolus 5000 units Heparin Drip I.V. drip 500 units/hr (85802vhskd/250 D5W) Hemodynamics Rest Heart Rate: 63 (bpm) Snapshots Pre Cath Intra NCS Post Cath Vital Signs Time Heart Resp SPO2 etCO2 NIBP (mmHg) Rhythm Pain Sedation Rate (ipm) (%) (mmHg) Status Level (bpm) 9:20:09 70 10 93 34.3 159/86(125) NSR 0 (11) 10(A) , No pain 9:24:31 62 9 98 34.4 157/82(132) NSR 0 (11) 10(A) , No pain 9:28:51 77 12 97 32.8 162/89(126) NSR 0 (11) 10(A) , No pain 9:33:13 76 12 98 33.6 151/87(127) NSR 0 (11) 10(A) , No pain 9:38:12 68 14 98 27.6 Measuring NSR 0 (11) 10(A) , No pain 9:38:27 66 13 98 34.3 156/90(143) NSR 0 (11) 10(A) , No pain 9:42:47 78 13 98 34.4 160/87(137) NSR 0 (11) 10(A) , No pain 9:47:07 68 12 98 35.1 136/83(116) NSR 0 (11) 8(A) , No pain 9:51:21 72 16 95 29.8 138/75(120) NSR 0 (11) 8(A) , No pain 9:55:33 70 19 95 29.8 139/81(115) NSR 0 (11) 8(A) , No pain 9:59:47 68 16 96 32.1 144/81(109) NSR 0 (11) 8(A) , No pain 10:04:03 68 11 96 34.3 148/83(113) NSR 0 (11) 8(A) , No pain 10:08:21 65 16 97 30.6 139/79(113) NSR 0 (11) 8(A) , No pain 10:12:35 61 16 97 28.3 128/79(112) NSR 0 (11) 8(A) , No pain 10:16:45 75 18 96 29.1 133/79(103) NSR 0 (11) 8(A) , No pain 10:20:57 64 17 96 33.6 136/77(100) NSR 0 (11) 8(A) , No pain 10:25:09 71 20 96 31.3 136/81(110) NSR 0 (11) 8(A) , No pain Medications Time Medication Route Dose Verified Delivered Reason Not es Effectiveness by by 9:19:26 Lidocaine 1% added 20ml Maximo Marsh for local to vial Adames Adames anesthetic field MD [facility] 9:19:42 Heparin Flush added 3 bags Maximo Marsh used for Bag to Adames Adames procedure (1000units/500ml field MD [facility] NS) 9:45:14 Fentanyl 50 mcg Maximo Simpson for sedation Zacarias Syed RN, MD 9:45:27 Versed I.V. 1 mg Maximo Simpson for sedation Zacarias Syed RN, MD 9:58:53 Versed I.V. 1 mg Maximo Simpson for sedation Zacarias Syed RN, MD 9:59:02 Fentanyl 50 mcg Maximo Simpson for sedation Zacarias Syed RN, MD 10:04:45 Heparin Bolus 5000 Maximo Marsh for units Adames Adames anticoagulation MD [facility] 10:05:22 Heparin Drip I.V. 500 Maximo Leroy for (25094yloul/250 drip units/hr Adamesadela Weller RN anticoagulation D5W) Procedure Log Time Note 9:02:53 Tatiana Syed RN sent for patient. Start room use. 9:02:57 Time tracking: Regular hours (M-F 7:00 - 5:00) 9:03:02 Plan of Care:Hemodynamics will remain stable., Cardiac rhythm will remain stable., Comfort level will be maintained., Respiratory function will remain adequate., Patient/ family verbilizes understanding of procedure., Procedure tolerated without complication., Recovers from procedure without complications.. 9:03:25 Patient received from Outpatients to IR Alert and oriented. Tansferred to table in Supine position. 9:03:27 Correct patient and procedure confirmed by team. 9:03:28 Signed procedure consent form obtained from patient. 9:03:29 ECG and BP/O2 sat monitors applied to patient. 9:03:30 Full Disclosure recording started 9:03:31 - 9:03:36 H&P Date Dictated: 04/06/2019 H&P Addendum completed by physician on day of procedure. (MUST COMPLETE FOR ALL OUTPATIENTS). 9:03:37 Pre-procedure instructions explained to patient. 9:03:37 Pre-op teaching completed and patient verbalized understanding. 9:03:38 Family in waiting room. 9:03:40 Patient NPO since Midnight. 9:04:17 Is the patient allergic to Iodine/contrast media? No. 9:04:25 Is patient on blood thinner?No 9:04:27 Patient diabetic? No. 9:04:33 Use device set IR Diagnostic 9:04:35 Sterile Angiographic Pack opened to sterile field. 9:04:36 ACIST Manifold (29768) opened to sterile field. 9:04:38 ACIST Syringe (35361) opened to sterile field. 9:04:39 ACIST Hand Control (06497) opened to sterile field. 9:04:39 Bag Decanter (2001S) opened to sterile field. 9:04:40 Tegaderm 4 x 4 (1626W) opened to sterile field. 9:04:53 ----Pre-sedation anethsthesia assessment.---- 9:04:57 Previous problem with sedation/anesthesia? No ? 9:04:59 Snore? Yes 9:05:01 Sleep apnea? No 9:05:02 Deviated septum? No 9:05:03 Opens mouth fully? Yes 9:05:04 Sticks out tongue? Yes 9:05:07 Airway obstruction? No ? 9:05:11 Dentures? No ? 9:05:20 Patient pain scale 0/10 no pain. 9:18:30 Pre procedure: right dorsailis pedis pulse Doppler 9:18:33 Pre procedure: left dorsailis pedis pulse Doppler 9:18:35 Pre procedure: right posterior tibial pulse None 9:18:42 Pre procedure: left posterior tibial pulse Doppler 9:18:49 IV patent on arrival in left hand with 0.45%NaCl at [facility]. 9:18:51 Sharps counted by scrub and verified by R.N. 9:18:52 Alarms reviewed by R. N. 9:19:02 Vital chart was started 9:19:06 Right groin area was prepped with chlora-prep and draped in sterile fashion 9:19:11 Baseline sample Acquired. 9:19:26 Lidocaine 1% 20ml vial added to field was administered by Maximo Adames MD; for local anesthetic; 9::42 Heparin Flush Bag (1000units/500ml NS) 3 bags added to field was administered by Maximo Adames MD; used for procedure; 9:42:04 Physician arrived 9:42:05 --------ALL STOP TIME OUT------ 9:42:06 Final Timeout: patient, procedure, and site verified with staff and physician. All members of the team are in agreement. 9:42:08 Right groin site verified by team. 9:42:12 Maximum allowable Isovue 300 dose 300ml. Physician notified. (300ml for normal creatinines. For patients with creatinine of 1.7 or higher multiply weight(kg) x 5 divided by creatinine.) 9:42:17 Fire Safety Assessment: A--An alcohol-based skin anteseptic being used preoperatively., C--Open oxygen or nitrous oxide is being used. 9:42:21 Sedation plan: IV Moderate Sedation Medication:Versed, Fentanyl 9:42:49 Procedure started. 9:42:52 Local anesthetic to right femoral artery with Lidocaine 1% by Maximo Adames MD.INITIAL ACCESS ONLY 9:43:00 DOC .035 wire (M17461) opened to sterile field. 9:43:01 SHEATH 5FR Minerva (PZW601) opened to sterile field. 9:43:03 A [employer] ULTRA BOLUS FLUSH 5Fr 65CM catheter ([id number]) was advanced over the wire and used for . 9:43:16 A 5 Fr sheath was inserted into the Right Femoral artery 9:45:14 Fentanyl 50 mcg was administered by Tatiana Syed RN; for sedation; 9:45:27 Versed 1 mg I.V. was administered by Tatiana Syed RN; for sedation; 9:50:35 GLIDE WIRE ANGLE 180cm (KC0059) opened to sterile field. 9:50:43 TORQUE DEVICE PLASTIC .038 ( TD01) opened to sterile field. 9:52:55 A Immunexpress OMNI 2 NON B 5FR 65CM catheter ([id number]) was advanced over the wire and used for . 9:53:00 A Genlot CHG-B 5FR 65CM catheter (L15051) was advanced over the wire and used for . 9:58:53 Versed 1 mg I.V. was administered by Tatiana Syed RN; for sedation; 9:59:02 Fentanyl 50 mcg was administered by Tatiana Syed RN; for sedation; 10:02:21 Procedure ended.(Physican Out) 10:04:45 Heparin Bolus 5000 units was administered by Maximo Adames MD; for anticoagulation; 10:05:22 Heparin Drip (59844vigey/250 D5W) 500 units/hr I.V. drip was administered by Mariaa Weller RN; for anticoagulation; 10:05:37 Fluoroscopy time 03.60 minutes. 10:05:48 Fluoroscopy dose: 209 mGy 10:05:48 Flurop Dose total: 209 10:05:53 Contrast amount:Isovue 300 60ml. 10:05:55 Sharps counted by scrub and verified by R.N. 10:14:57 Insertion/operative site no bleeding no hematoma. 10:15:01 Post-op/insertion site Right Femoral artery dressed using a 4 x 4 and Tegaderm. 10:15:23 SHEATH SUTURED IN AND TPA INFUSING 10:15:55 Post Procedure Pulses reassessed and unchanged 10:17:23 Post procedure instruction explained to patient.Patient verbalizes understanding. 10:17:28 Procedure and supply charges have been captured, reviewed, submitted an d are correct. 10:28:48 Report given to CVICU. 10:28:52 Patient transfered to CVICU with Bed. 10:29:24 Vital chart was stopped Device Usage Item Name Manufacture Quantity Catalog Number Hospital Part Current M inimal Lot# / Charge Number Stock Stock Serial# Code Sterile Cardinal 1 [id number] [id number] 5 Angiographic Health Pack ACIST Manifold Acist Medical 1 42268 419409 823455 481069 5 (20133) Systems Inc ACIST Syringe Acist Medical 1 18056 147711 099482 856371 2 0 (02915) Systems Inc ACIST Hand Acist Medical 1 44590 843043 602197 711395 5 Control Systems Inc (35113) Bag Decanter Microtek 1 2002S 742110 43633 737856 5 (2001S) Medical Inc. Tegaderm 4 x 4 3M 1 1626W 776469 131074 381116 5 (1626W) DOC .035 wire Genlot Medical 1 E10103 886918 682350 5 (E86597) SHEATH 5FR Terumo 1 ONH215 761986 683504 741908 5 Minerva (FCQ035) Merit ULTRA Node1 1 8882627SLE-MP 155646 217628 5 BOLUS FLUSH 5Fr 65CM catheter ([id number]) GLIDE WIRE Terumo 1 SK8598 979535 117163 599093 5 ANGLE 180cm (JU4943) TORQUE DEVICE [place] 1 TD01 205867 376858 523141 5 PLASTIC .038 ( Scientific TD01) Angiodynamics Angiodynamics 1 [id number] 418818 55393 544229 5 SOS OMNI 2 NON B 5FR 65CM catheter ([id number]) Cook CHG-B 5FR Cook Medical 1 N78192 190913 357310 511128 5 65CM catheter (Q56875) Signature Audit Cost Stage Time Signature Unsigned Intra-Procedure 04/06/2019 Breezy 10:29:20 AM Quang RT (R) (CV) Signatures Monitor : Breezy Signature : Quang RT Date : Time : [address] [address]
[2019-04-06] MEDS ORDERED: VITAMIN B-6250 MG PO (08:04)
[2019-04-06 08:31] LABS: BASOPHILS 0.6 % (0-2); HEMOGLOBIN 14.9 g/dL (13.5-17.5); IMMATURE GRANULOCYTES 0.2 % (0-5); LYMPHOCYTES 36.3 % (15-50); MCHC 35.5 g/dL (31.0-37.0); MCV 90.1 fL (80.0-100.0); MEAN PLATELET VOLUME 8.5 fL (7.4-10.4); MONOCYTES 11.2 % (2-11); NEUTROPHILS 48.7 % (40-80); PLATELET COUNT 238 10x3/uL (130-400); RBC 4.66 10x6/uL (4.20-6.10); RDW 15.5 % (11.5-14.5); WBC 5.3 10x3/uL (4.8-10.8)
[2019-04-06 08:40] LABS: CALC OSMOLALITY 278 mosm/kg (275-300); CALCIUM 9.3 mg/dL (8.5-10.1); CHLORIDE - SERUM 105 mmol/L (98-107); CREATININE - SERUM 0.8 mg/dL (0.6-1.3); GLUCOSE 107 mg/dL (74-106); POTASSIUM - SERUM 4.4 mmol/L (3.5-5.1); SODIUM 141 mmol/L (136-145); UREA NITROGEN 7 mg/dL (7-18); eGFR NON AFRICAN AMERICAN > 90 mL/min (90-120)
[2019-04-06 09:13] LABS: APTT 28.3 SECONDS (22.8-39.4); INR 1.04 (0.85-1.17); PROTIME 13.1 SECONDS (11.6-15.0)
--- NOTE | 2019-04-06 10:45 | NUR ---
RECEIVED PT FROM IR. HOOKED UP TO MONITOR. VSS. NRS. ABLE TO HERE PULSE TO LEFT FOOT WITH DOPPLER--THOUGH VERY SOFT. HEPARIN INFUSING VIA RIGHT GROIN SHEATH AT 5ML/HR. ALTEPLASE INFUSING TO OTHER RIGHT GROIN SHEATH AT 20 ML/HR. 1/2NS INFUSING THROUGH LEFT HAND PIV AT 50. PT AWAKE ALERT AND ORIENTED. WILL CONTINUE TO MONITOR
--- NOTE | 2019-04-06 11:15 | NUR ---
VERIFIED WITH URMILA CODY THAT HEPARIN DRIP IS AT FIXED RATE OF 500UNITS/HR AND NOT HEPARIN PROTOCOL TO TITRATE.
[2019-04-06 11:38] LABS: BASOPHILS 0.5 % (0-2); EOSINOPHILS 2.7 % (0-7); HEMATOCRIT 41.6 % (42.0-54.0); HEMOGLOBIN 14.9 g/dL (13.5-17.5); IMMATURE GRANULOCYTES 0.2 % (0-5); LYMPHOCYTES 34.9 % (15-50); MCH 32.4 pg (26.0-34.0); MCHC 35.8 g/dL (31.0-37.0); MCV 90.4 fL (80.0-100.0); MEAN PLATELET VOLUME 8.5 fL (7.4-10.4); MONOCYTES 7.4 % (2-11); NEUTROPHILS 54.3 % (40-80); PLATELET COUNT 214 10x3/uL (130-400); RDW 15.5 % (11.5-14.5); WBC 5.5 10x3/uL (4.8-10.8)
[2019-04-06 11:53] LABS: INR 1.09 (0.85-1.17); PROTIME 13.6 SECONDS (11.6-15.0)
[2019-04-06 11:56] LABS: APTT 79.3 SECONDS (22.8-39.4)
--- NOTE | 2019-04-06 13:00 | NUR ---
CHECKED LEFT PEDAL PULSE WITH DOPPLER. STILL VERY FAINT. LEFT TIBIAL SEEMS TO HAVE IMPROVED ON DOPPLER. IN ROOM. PT LAYING FLAT WITH LEGS FLAT.
--- NOTE | 2019-04-06 15:30 | NUR ---
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
--- NOTE | 2019-04-06 17:00 | NUR ---
RECEIVED PT BACK FROM IR. IR SHEATH REMOVED FROM RIGHT GROIN CLOSED WITH EXOSEAL AND DRESSED WITH GAUZE AND TEGADERM. PATIENT IN SUPINE. HOOKED UP TO MONITOR. VITALS STABLE. RECEIVD IN REPORT THAT LEFT ILIAC ARTERY STILL 100% OCCLUDED, UNSTENTABLE. RIGHT ILIAC ARTERY WAS STENTED.
[2019-04-06 17:04] LABS: BASOPHILS 0.3 % (0-2); EOSINOPHILS 1.5 % (0-7); HEMATOCRIT 43.2 % (42.0-54.0); HEMOGLOBIN 15.1 g/dL (13.5-17.5); IMMATURE GRANULOCYTES 0.2 % (0-5); LYMPHOCYTES 36.2 % (15-50); MCH 31.9 pg (26.0-34.0); MCV 91.1 fL (80.0-100.0); MEAN PLATELET VOLUME 8.5 fL (7.4-10.4); MONOCYTES 10.2 % (2-11); NEUTROPHILS 51.6 % (40-80); PLATELET COUNT 201 10x3/uL (130-400); RBC 4.74 10x6/uL (4.20-6.10); RDW 15.3 % (11.5-14.5)
--- NOTE | 2019-04-06 17:15 | NUR ---
OBTAINED ORDERS FROM DR. PRINGLE TO CONSULT DR. BENAVIDES FOR FUTURE BYPASS SURGERY AND CAN TRANSFER TO FLOOR. ALSO CLARIFIED THAT PATIENT SHOULD LIE FLAT FOR 2 HOURS BEFORE ELEVATING HOB.
--- NOTE | 2019-04-06 18:38 | NUR ---
ELEVATED HOB 30 DEGREES TO SERVE DINNER TRAY.
--- NOTE | 2019-04-06 19:06 | NUR ---
CALLED REPORT TO MED SURGE NURSE.
--- NOTE | 2019-04-06 19:30 | NUR ---
ADMITTED TO ROOM FROM ICU, ALERT AND ORIENTIATED, DENIES PAIN, DRESSING TO RIGHT GROIN INTACT NO DRAINAGE OR SWELLING NOTED, GOOD PEDAL PULSES, ORIENTIATED TO ROOM CALL LIGHT IN REACH, SEE SHIFT ASSESSMENT
[2019-04-07 01:57] VITALS: BP 158/93
[2019-04-07 04:10] LABS: BASOPHILS 0.5 % (0-2); EOSINOPHILS 2.3 % (0-7); HEMATOCRIT 42.6 % (42.0-54.0); IMMATURE GRANULOCYTES 0.2 % (0-5); LYMPHOCYTES 33.7 % (15-50); MCH 32.2 pg (26.0-34.0); MCHC 35.2 g/dL (31.0-37.0); MCV 91.4 fL (80.0-100.0); MEAN PLATELET VOLUME 8.6 fL (7.4-10.4); MONOCYTES 11.2 % (2-11); NEUTROPHILS 52.1 % (40-80); PLATELET COUNT 221 10x3/uL (130-400); RBC 4.66 10x6/uL (4.20-6.10); RDW 15.2 % (11.5-14.5); WBC 6.5 10x3/uL (4.8-10.8)
[2019-04-07 04:33] LABS: CALC OSMOLALITY 280 mosm/kg (275-300); CARBON DIOXIDE 25.9 mmol/L (21.0-32.0); CHLORIDE - SERUM 105 mmol/L (98-107); CREATININE - SERUM 0.7 mg/dL (0.6-1.3); GLUCOSE 103 mg/dL (74-106); POTASSIUM - SERUM 3.9 mmol/L (3.5-5.1); SODIUM 141 mmol/L (136-145); eGFR NON AFRICAN AMERICAN > 90 mL/min (90-120)
[2019-04-07 04:42] LABS: UREA NITROGEN 13 mg/dL (7-18)
[2019-04-07 05:41] VITALS: BP 124/80
[2019-04-07 09:42] VITALS: BP 151/82
--- NOTE | 2019-04-07 09:54 | NUR ---
MORNING ASSESSMENT COMPLETE. SEE ASSESSMENT FLOWSHEET FOR FURTHER DETIALS. PT LYING IN BED AAO X4 TO PERSON, PLACE, TIME, AND SIUTATION. DENIES NEEDS AT THIS TIME. CL IN REACH. SIDE RAILS UP X3 FOR PT SAEFTY. BED IN LOWEST POSITION. AT BEDSIDE.
[2019-04-07 10:26] LABS: BASOPHILS 0.3 % (0-2); EOSINOPHILS 1.6 % (0-7); HEMATOCRIT 41.6 % (42.0-54.0); HEMOGLOBIN 14.4 g/dL (13.5-17.5); IMMATURE GRANULOCYTES 0.2 % (0-5); LYMPHOCYTES 31.6 % (15-50); MCH 31.8 pg (26.0-34.0); MCHC 34.6 g/dL (31.0-37.0); MCV 91.8 fL (80.0-100.0); MEAN PLATELET VOLUME 8.5 fL (7.4-10.4); MONOCYTES 9.6 % (2-11); NEUTROPHILS 56.7 % (40-80); PLATELET COUNT 204 10x3/uL (130-400); RBC 4.53 10x6/uL (4.20-6.10); RDW 15.2 % (11.5-14.5); WBC 6.2 10x3/uL (4.8-10.8)
[2019-04-07] MEDS ORDERED: LOW DOSE ASPIRI81 M1 PO (13:55)
[2019-04-07 15:03] VITALS: Ht 182.9 cm; Wt 81.8 kg
== END 2019-04-07 14:35 | disposition home or self-care (01) ==
LOC: D.SP 07:26 → D.CVICU 07:26 → D.RAD 10:00 → D.SP 10:00 → D.CLR 10:45 → D.CVICU 10:46 → D.MS 19:11 → D.SP 04-07 14:35
PROVIDERS: ATTEND Specialist
DX: I70.213 Atherosclerosis of native arteries of extremities with intermittent claudication, bilateral legs (principal); I10 Essential (primary) hypertension; E78.5 Hyperlipidemia, unspecified; Z87.891 Personal history of nicotine dependence; K21.9 Gastro-esophageal reflux disease without esophagitis; M19.90 Unspecified osteoarthritis, unspecified site; G89.29 Other chronic pain; M54.9 Dorsalgia, unspecified; Z79.891 Long term (current) use of opiate analgesic; Z79.82 Long term (current) use of aspirin; Z79.899 Other long term (current) drug therapy; Z01.812 Encounter for preprocedural laboratory examination

== ENCOUNTER 2019-04-14 09:00 | Inpatient (IN) | payer BC ==
[~2019-04-14] VITALS: Ht 182.9 cm; Wt 87.0 kg
[~2019-04-14 09:00] MED LIST changes: +LOW DOSE ASPIRI81 M1 PO; +VITAMIN B-6250 MG PO
[2019-04-14] MEDS ORDERED: VITAMIN B COMPLEX PO (09:01)
[2019-04-14 10:56] LABS: BASOPHILS 0.2 % (0-2); EOSINOPHILS 2.5 % (0-7); HEMATOCRIT 43.8 % (42.0-54.0); HEMOGLOBIN 15.4 g/dL (13.5-17.5); IMMATURE GRANULOCYTES 0.2 % (0-5); MCH 32.4 pg (26.0-34.0); MCHC 35.2 g/dL (31.0-37.0); MCV 92.2 fL (80.0-100.0); MEAN PLATELET VOLUME 8.6 fL (7.4-10.4); MONOCYTES 9.6 % (2-11); NEUTROPHILS 52.5 % (40-80); PLATELET COUNT 232 10x3/uL (130-400); RBC 4.75 10x6/uL (4.20-6.10); RDW 15.9 % (11.5-14.5); WBC 8.2 10x3/uL (4.8-10.8)
[2019-04-14 11:12] LABS: APTT 27.5 SECONDS (22.8-39.4); INR 1.03 (0.85-1.17)
[2019-04-14 11:18] LABS: ALBUMIN 3.8 g/dL (3.4-5.0); ALKALINE PHOSPHATASE 131 U/L (46-116); ALT (SGPT) 47 U/L (10-68); CALC OSMOLALITY 277 mosm/kg (275-300); CALCIUM 9.7 mg/dL (8.5-10.1); CARBON DIOXIDE 31.2 mmol/L (21.0-32.0); CHLORIDE - SERUM 102 mmol/L (98-107); CREATININE - SERUM 0.9 mg/dL (0.6-1.3); GLUCOSE 105 mg/dL (74-106); POTASSIUM - SERUM 3.9 mmol/L (3.5-5.1); PROTEIN - SERUM 8.6 g/dL (6.4-8.2); SODIUM 139 mmol/L (136-145); UREA NITROGEN 13 mg/dL (7-18); eGFR NON AFRICAN AMERICAN > 90 mL/min (90-120)
[2019-04-14 11:52] LABS: APPEARANCE CLEAR (CLEAR); BACTERIA FEW /hpf (NONE SEEN); BILIRUBIN NEGATIVE (NEGATIVE); COLOR DK YELLOW (YELLOW); EPITHELIAL CELLS 0-5 /hpf (0-5); GLUCOSE NEGATIVE (NEGATIVE); HYALINE CAST RARE /lpf (NONE SEEN); KETONE NEGATIVE (NEGATIVE); MUCUS >1+ /lpf (NONE SEEN); NITRITE NEGATIVE (NEGATIVE); PROTEIN TRACE mg/dL (NEGATIVE); SPECIFIC GRAVITY 1.015 (1.005-1.020); UROBILINOGEN NORMAL (NORMAL); WHITE CELLS - URINE OCC /hpf (0-5)
[2019-04-14 11:53] LABS: CALCIUM OXALATE CRYSTALS OCC /hpf (NONE SEEN); GRANULAR CAST OCC /lpf (NONE SEEN)
[2019-04-18] VITALS (40 sets, daily range): BP systolic 96–150; BP diastolic 45–81; BMI 25.1
--- NOTE | 2019-04-18 12:35 | NUR ---
PT ARRIVED IN THE UNIT WITH THE OR TEAM. PT HOOKED TO ICU MONITORS. PT SLIGHTLY SEDATED WITH A SLURRED SPEECH BUT FOLLOWS COMMANDS AND A&O X4. SIMPLE MASK ON THE PT. NSR ON THE MONITOR. EPIDURAL DRESSING C/D/I. EPIDURAL SET AT 8ML/H WITH 5ML PRN BOLUS Q 15 MINS. RIGHT IJ CENTRAL LINE NOTED. CHERRI NOTED TO THE RIGHT RADIAL. GOOD WAVE FORM NOTED. WRIST PROTECTOR ON. MID ABD DRESSING C/D/I. RIGHT AND LEFT GROIN DRESSING NOTD BOTH C/D/I. FC NOTED WITH CLEAR, YELLOW URINE NOTED. BILATEARL DORALIS PEDIS AND POSTERIOR TIBIAL DOPPERABLE. BILATEARL FEET BOTH EQUAL IN COLOR AND TEMP. PT RECOVERED WITH 1:1 NURSING. VSS SEE IV FLUIDS IN FLOW SHEET. PT INSTRUCTED TO USE IS AND HOW TO SPLINT HIS ABD WITH PILLOW. CALL LIGHT IN REACH. WILL CONT POC.
--- NOTE | 2019-04-18 12:35 | NUR ---
NGT TO THE RIGHT NARE WAS NOTED. PATENCY CHECKED VIA A&A. NO RESIDUAL NOTED. HOOKED TO LIS.
[2019-04-18 12:40] LABS: HEMATOCRIT 36.7 % (42.0-54.0); HEMOGLOBIN 12.7 g/dL (13.5-17.5); MCH 32.3 pg (26.0-34.0); MCHC 34.6 g/dL (31.0-37.0); MCV 93.4 fL (80.0-100.0); MEAN PLATELET VOLUME 8.5 fL (7.4-10.4); RBC 3.93 10x6/uL (4.20-6.10); RDW 16.3 % (11.5-14.5); WBC 13.7 10x3/uL (4.8-10.8)
[2019-04-18 12:59] LABS: ALBUMIN 2.7 g/dL (3.4-5.0); ALKALINE PHOSPHATASE 89 U/L (46-116); ALT (SGPT) 36 U/L (10-68); BILIRUBIN - TOTAL 1.03 mg/dL (0.2-1.3); CALC OSMOLALITY 285 mosm/kg (275-300); CALCIUM 7.5 mg/dL (8.5-10.1); CARBON DIOXIDE 24.8 mmol/L (21.0-32.0); CHLORIDE - SERUM 109 mmol/L (98-107); CREATININE - SERUM 0.9 mg/dL (0.6-1.3); GLUCOSE 147 mg/dL (74-106); POTASSIUM - SERUM 4.4 mmol/L (3.5-5.1); PROTEIN - SERUM 5.8 g/dL (6.4-8.2); SODIUM 143 mmol/L (136-145); UREA NITROGEN 8 mg/dL (7-18); eGFR NON AFRICAN AMERICAN > 90 mL/min (90-120)
--- NOTE | 2019-04-18 14:58 | NUR ---
PT PULLS ABOUT 1250 TO 1700 ON HIS IS. INSTRUCTED TO USE 10X'S/H. VSS. CALL LIGHT IN REACH. WILL CONT POC.
--- NOTE | 2019-04-18 15:00 | NUR ---
REASSESSMENT COMPLETED. SEE IF FLOW SHEET. NO CHANGE IN PTS CONDITION. WILL MONITOR.
--- NOTE | 2019-04-18 16:34 | NUR ---
PT C/O SLIGHT NAUSEA. PRN ZOFRAN GIVEN. SEE MAR.
--- NOTE | 2019-04-18 17:24 | NUR ---
PULSES REMAIN DOPPLERABLE. PT ABLE TO PULL 4000 ON HIS IS. FAMILY AT THE PTS BEDSIDE. BOWEL SOUNDS HYPOACTIVE X4. CALL LIGHT IN REACH. WILL CONT POC.
--- NOTE | 2019-04-18 17:45 | MORECARE ---
CASE MANAGEMENT DISCHARGE SUMMARY PATIENT: CHAIM HORTON UNIT: [id number] ADM DATE: 04/18/19 AGE: 53 : 67 SEX: M ROOM/BED: D.CV03 AUTHOR: MARCELA CHAHAL PHYSICIAN: REFERRING PHYSICIAN: JASON DUKE MD DATE OF SERVICE: 04/18/19 Discharge Plan Patient Name: CHAIM HORTON Facility: [facility]:[place] : 1965 Planned Disposition: Home Anticipated Discharge Date: Discharge Date: Expected LOS: Initial Reviewer: [email or web address] Initial Review Date: 04/18/2019 Generated: 04/18/19 6:45 pm Comments DCP- Discharge Planning Updated by [email or web address]: Melyssa Schroeder on 04/18/19 4:[address] Patient Name: CHAIM HORTON Admission Status: Elective Accout number: [id number] Admission Date: 04-18-2019 : 1965 Admission Diagnosis: Attending: JASON DUKE Current LOS: 1 Anticipated DC Date: Planned Disposition: Home Primary Insurance: [employer] OUT OF STATE Discharge Planning Comments: CM met with patient and spouse (Radha) at bedside after explaining CM role and obtaining verbal consent. Patient lives at home with his Radha and plans to return there upon discharge. Patient feels this would be a safe discharge. CM discussed availability / needs of home health and medical equipment. Patient denies any discharge needs at this time. Patient states he will have his drive him home upon discharge. CM will continue to follow and assist as needed with discharge planning / needs. Manager Community: Melyssa Schroeder DCPIA - Discharge Planning Initial Assessment Updated by [email or web address]: Melyssa Schroeder on 04/18/19 5:39 pm * Is the patient Alert and Oriented? Yes * How many steps to enter\exit or inside your home? * PCP Xiomara * Pharmacy [facility] [address] * Preadmission Environment Home with Family * ADLs Independent * Equipment None * List name and contact numbers for known caregivers / representatives who currently or will assist patient after discharge: Radha Horton - Spouse - [phone] * Verbal permission to speak to the caregivers and representatives has been obtained from the patient. N/A * Community resources currently utilized None * Additional services required to return to the preadmission environment? No * Can the patient safely return to the preadmission environment? Yes * Has this patient been hospitalized within the prior 30 days at any hospital? No Patient Name: CHAIM HORTON Page [phone] at 1745 All edits/amendments must be made on the electronic document DICTATION DATE: 04/18/191743 DAIRY CATTLE FARM WORKER: DERREK 04/18/191743 RPT#: [id number] DC DATE: STATUS: ADM IN [facility] [address] [place] [address] END OF REPORT
--- NOTE | 2019-04-18 18:56 | NUR ---
PT DANGLED AT THE BEDSIDE. PT SLIGHTLY UNSTEADY. VSS. PT BACK INTO BED. WILL CONT POC.
--- NOTE | 2019-04-18 18:58 | NUR ---
SPOKE WITH DR DUKE ABOUT IV FLUIDS. CHAGNE TO D5 1/2NS WITH 20KCL AT 100ML/H.
--- NOTE | 2019-04-18 21:20 | NUR ---
ANESTHESIA NOA CORNELL AT BEDSIDE TO REPLACE EPIDURAL FLUID, REMAINING MEDICATION IN REPLACED BAG FLUSHED DOWN SINK, NEW EPIDURAL ORDERS RECEIVED; RATE 8ML/HR WITH 5ML Q15MIN LITHOGRAPHIC GENERAL WORKER BOLUS.
[2019-04-19] VITALS (52 sets, daily range): BP systolic 97–164; BP diastolic 42–88; Ht 182.9 cm; Wt 87.0 kg
[2019-04-19 05:52] LABS: HEMATOCRIT 34.3 % (42.0-54.0); HEMOGLOBIN 11.4 g/dL (13.5-17.5); MCH 31.5 pg (26.0-34.0); MCHC 33.2 g/dL (31.0-37.0); MCV 94.8 fL (80.0-100.0); MEAN PLATELET VOLUME 8.3 fL (7.4-10.4); RBC 3.62 10x6/uL (4.20-6.10); RDW 16.7 % (11.5-14.5); WBC 12.1 10x3/uL (4.8-10.8)
[2019-04-19 06:16] LABS: ALBUMIN 2.6 g/dL (3.4-5.0); ALKALINE PHOSPHATASE 69 U/L (46-116); ALT (SGPT) 45 U/L (10-68); BILIRUBIN - TOTAL 0.78 mg/dL (0.2-1.3); CALCIUM 7.6 mg/dL (8.5-10.1); CARBON DIOXIDE 23.5 mmol/L (21.0-32.0); CHLORIDE - SERUM 109 mmol/L (98-107); GLUCOSE 138 mg/dL (74-106); PROTEIN - SERUM 6.2 g/dL (6.4-8.2); SODIUM 142 mmol/L (136-145); eGFR NON AFRICAN AMERICAN 83 mL/min (90-120)
[2019-04-19 06:22] LABS: CALC OSMOLALITY 284 mosm/kg (275-300); UREA NITROGEN 12 mg/dL (7-18)
--- NOTE | 2019-04-19 07:00 | NUR ---
REPORT RECEVIED FROM THE OFF GOING RN. SEE ASSESSMENT IN THE PTS FLOW SHEET. PT ASSISTED OOB AND INTO THE BEDSIDE CHAIR. PT WAS DANGLED FOR 10 MINS PRIOR TO ASSISTING OOB AND PT TOLERATED WELL WITH A STEADY GAIT. PT NOTED TO HAVE A R NARE NGT TO LIS. SINUS TACH ON THE MINIOTOR. EPIDURAL IN PLACE AND SITE C/D/I. PAIN UNDER CONTROL PER PT. RIGHT IJ CVL NOTED. SEE IV FLUIDS IN THE PTS FLOW SHEET. MID ABD DRESSING C/D/I. ABSENT BOWEL SOUNDS X4. BILATERAL GROIN DRESSINGS C/D/I. SOFT TO PALPATATION. BILATERAL DP AND TP PULSES DOPPERABLE. VSS AT THIS TIME. PT PULLS ABOUT 2500 ON HIS IS. CALL LIGHT IN REACH. WILL CONT POC.
--- NOTE | 2019-04-19 08:00 | NUR ---
DR DUKE AT THE PTS BEDSIDE. ALEKSANDER HARLEY. START 2.5 IV LOPRESSOR Q 4 HOURS.
--- NOTE | 2019-04-19 08:14 | NUR ---
DR DUKE AT THE PTS BEDSIDE. CHANGE
--- NOTE | 2019-04-19 08:52 | NUR ---
IV LOPRESSER GIVEN PER ORDERS. NITRO WEENED OFF PER ORDERS. PT TOLERATED WELL. VSS. WILL CONT POC.
--- NOTE | 2019-04-19 09:26 | NUR ---
CHERRI DC'D PER ORDERS. NO S/SX OF BLEEDING NOTED. DRESSING APPLIED. PT TOLERATED WELL. WILL CONT POC.
--- NOTE | 2019-04-19 12:07 | OP ---
PATIENT NAME: CHAIM MENDOZA MEDICAL RECORD: [id number] :[birth year] LOCATION:D.CVI D.CV03 ADMISSION DATE:04/18/19 SURGEON: JARROD DUKE MD DATE OF OPERATION: 04/18/2019 SURGEON: Jarrod Duke MD ASSISTANTS: 1. Ag Sifuentes 2. Daniel Bolaños MD OPERATION PERFORMED: Aortobifemoral bypass. PREOPERATIVE DIAGNOSIS: Iliac stenosis and occlusion. POSTOPERATIVE DIAGNOSIS: Iliac stenosis and occlusion. ANESTHESIA: General endotracheal anesthesia. ESTIMATED BLOOD LOSS: 200 cc with 100 cc of Cell Saver. SPECIMENS: None. COMPLICATION: None. CONDITION: Stable. DISPOSITION: CV ICU. OPERATIVE FINDINGS: 1. Moderate distal aortic calcification. 2. Previous access site in the right femoral with thickened wall. 3. Only a moderate amount of calcium on the left, not as severe as expected from the CT scan. The head of the graft was taken down over the origin of the superficial femoral. OPERATIVE INDICATION: Left leg ischemia. PROCEDURE IN DETAIL: The patient was brought to the operative suite. General anesthesia was obtained. The patient was prepped and draped. Vertical incisions over both groins were made. Incision was taken down to the common femoral artery. Profunda femoral branches and superficial femoral were dissected out and encircled with Vesseloops. Midline abdominal incision was made and taken down through the fascia. Peritoneum was opened. Inspection revealed no masses and the NG tube was in a good position. Transverse mesocolon was lifted and the retroperitoneum was exposed by moving the small intestines to the right. Retroperitoneum was thick, it was incised. The aorta was dissected out up to the level of the renal vein. Tunnels were made between the retroperitoneum in each groin. Heparin was given. After the heparin had circulated, the aorta was clamped and backbleeding was clamped. The aorta was transected. Distal aorta was oversewn. The 14 x 7 bifurcated Hemashield graft was sutured to the aorta end-to-end and once this was completed, graft was flushed. Hemostasis was assured. A single suture was used for hemostasis. The graft limbs were brought through the retroperitoneum OPERATIVE REPORT [id number] CHAIM MENDOZA into both groins. Simultaneously, the distal anastomosis was performed. The assistant sales manager was Dr. Bolaños. He performed a left-sided anastomosis while the right-sided anastomosis was performed by me. This saved approximately 30 minutes of cross-clamp time. The flow was restored after backbleeding the vessels and then hemostasis was assured. Protamine was given in the abdomen. Thorough irrigation was undertaken. Retroperitoneum was closed. Abdomen was closed with running PDS at subcutaneous and skin clips. Both groins were closed with 2 layers of skin clips. The patient was stable to CV ICU. TRANSINT:[id number] Voice Confirmation ID: [id number] DOCUMENT ID: [id number] JARROD DUKE MD at 1207 CC: JL WEATHERS [id number] DICTATION DATE: 04/18/19 182 UNDERWRITING SUPPORT MANAGER: 04/18/192016 ADM IN [facility] [address] [place] [address]
--- NOTE | 2019-04-19 13:35 | NUR ---
PT C/O OF EXTREAM ABD PAIN. ATTEPMTED TO REPOSITION AND TO STAND UP WITH NO SUCCESS OF PAIN RELIEVE. DR DUKE IN THE UNIT AND MADE AWARE. HE STATED TO PAGE ANETHESIA.
--- NOTE | 2019-04-19 13:40 | NUR ---
DR YAN WITH ANESTHESIA IN THE UNIT. HE IS AT THE PTS BEDSIDE AND GAVE VERBAL ORDERS FOR MORPHINE 2MG Q2H PRN.
--- NOTE | 2019-04-19 18:00 | NUR ---
PT ASSISTED BACK INTO BED.
--- NOTE | 2019-04-19 22:00 | NUR ---
PT C/O EXTREAM CRAMPING ACHING RLQ ABDOMEN PAIN, RATED 8/10 ON NUMERIC SCALE, DRIFT MINER EPIDURAL USED BY PT, ATTEMPTED REPOSITIONING WITH NO RELEIF, PRN MORPHINE 2MG GIVEN PER RIGHT IJ, WILL CONTINUE TO MONITOR
[2019-04-20] VITALS (63 sets, daily range): BP systolic 101–166; BP diastolic 55–92
--- NOTE | 2019-04-20 06:30 | NUR ---
PT'S B/P ELEVATED 165/92, HR 110, NOTIFIED , ORDERS RECEIVED TO RESTART NITRO INFUSION
[2019-04-20 06:56] LABS: HEMATOCRIT 35.8 % (42.0-54.0); MCH 32.1 pg (26.0-34.0); MCHC 33.5 g/dL (31.0-37.0); MCV 95.7 fL (80.0-100.0); MEAN PLATELET VOLUME 8.8 fL (7.4-10.4); RBC 3.74 10x6/uL (4.20-6.10)
[2019-04-20 07:04] LABS: WBC 15.9 10x3/uL (4.8-10.8)
[2019-04-20 07:08] LABS: ALBUMIN 2.6 g/dL (3.4-5.0); ALKALINE PHOSPHATASE 71 U/L (46-116); BILIRUBIN - TOTAL 1.17 mg/dL (0.2-1.3); CALC OSMOLALITY 282 mosm/kg (275-300); CARBON DIOXIDE 27.1 mmol/L (21.0-32.0); CHLORIDE - SERUM 107 mmol/L (98-107); CREATININE - SERUM 0.8 mg/dL (0.6-1.3); GLUCOSE 116 mg/dL (74-106); POTASSIUM - SERUM 3.8 mmol/L (3.5-5.1); PROTEIN - SERUM 6.8 g/dL (6.4-8.2); SODIUM 142 mmol/L (136-145); UREA NITROGEN 11 mg/dL (7-18); eGFR NON AFRICAN AMERICAN > 90 mL/min (90-120)
[2019-04-20 07:09] LABS: ALT (SGPT) 67 U/L (10-68)
--- NOTE | 2019-04-20 08:33 | NUR ---
ANESTHESIA AT BEDSIDE TO CHANGE OUT FENTANYL EPIDURAL BAG.
--- NOTE | 2019-04-20 16:00 | NUR ---
PT TURNED AND REPOSITIONED FOR COMFORT, MONITORS ON AND WORKING, VITALS STABLE.
--- NOTE | 2019-04-20 17:00 | NUR ---
PT TURNED AND REPOSTIONED FOR COMFORT, PT TURN COUGH AND DEEP BREATHE, NO SIGNS/SYMPTOMS OF PAIN OR DISCOMFORT NOTED.
--- NOTE | 2019-04-20 19:15 | NUR ---
Received patient resting in bed with eyes open, assessment completed per flowsheet. Patient AO x4, calm and cooperative. NGT R nare to LIWS, frothy clear drainage. R IJ secured, patent with fluids infusing. S1/S2 noted NSR on telemetry with HR 82, rythmic and regular. Breathing is even/unlabored on 2L via NC with O2 sat 98%, lung sounds clear bilateral upper and mid with diminished lower. Abdomen is round/soft, bowel sounds hypoactive x3 with LUQ absent. Abdomen incision dressing CDI, soft to palpation with no drainage noted. Bilateral groin incision derssing CDI, soft to palpation with no bleeding/drainage noted. Upper pulses/R lower palpable with L lower weak/doppler, cap refill < 3 sec with skin warm/dry. Epidural in use, line secure/intact with dressing secured. No further needs at this time, see flowsheet for details. All VSS and will continue to monitor.
--- NOTE | 2019-04-20 19:35 | NUR ---
Dr Meraz at bedside to change out epidural bag, bolus given at bedside by Mariya. Patient awake/alert and answers appropriately, denies needs and will continue to monitor.
--- NOTE | 2019-04-20 21:10 | NUR ---
Patient resting in bed with eyes closed, family at bedside for visitation. Discussed current status/medications with all questions answered to satisfaction, no further needs at this time. Encouraged cough/deep breath with good effort/strong cough noted. Epidural in use, line secure/intact. All VSS and will continue to monitor.
--- NOTE | 2019-04-20 23:05 | NUR ---
Reassessment completed per flowsheet, no changes noted from previous assessment. NGT secured, clear frothy drainage. S1/S2 noted NSR on telemetry, rythmic and regular. Breathing is even/unlabored on 2L via NC with O2 sat 97%, lung sounds clear bialteral upper and mid with diminished lower. LUQ bowel sounds absent/hypoactive x3, non-tender. Upper pulses/R lower palpable with L lower weak/doppler, cap refill < 3 sec with skin warm/dry. Criticore secure, concentrated yellow urine. Epidural in use, line secure/intact with dressing intact. No further needs at this time, all VSS and will continue to monitor.
[2019-04-21] VITALS (92 sets, daily range): BP systolic 103–158; BP diastolic 58–91
--- NOTE | 2019-04-21 01:05 | NUR ---
Patient sleeping in bed with eyes closed, no s/s of distress at this time. Awakens easily/answers appropriately, L lower pulse weak with remaining pulses palpable. Epidural in use with line secure/intact, denies pain or other needs and will continue to monitor.
--- NOTE | 2019-04-21 03:01 | NUR ---
Reassessment completed per flowsheet, no changes noted from previous assessment. S1/S2 noted NSR on telemetry, rythmic and regular. Breathing is even/unlabored on 2L via NC with O2 sat 98%, lung sounds clear bilateral upper and mid with diminished lower. Abdomen is soft/round with bowel sounds hypoactive x4, non-tender. Abdomen/Bilateral groin dressing CDI, soft to palpation with no bleeding/drainage noted. Upper/RLE pulses palpable with LLE weak/doppler, skin warm/dry. Epidural in use, line secure/intact with dressing secured. Denies futher needs at this time, see flowsheet for details. All VSS and will continue to monitor.
[2019-04-21 05:34] LABS: HEMATOCRIT 30.8 % (42.0-54.0); HEMOGLOBIN 10.3 g/dL (13.5-17.5); MCH 32.5 pg (26.0-34.0); MCHC 33.4 g/dL (31.0-37.0); MCV 97.2 fL (80.0-100.0); MEAN PLATELET VOLUME 8.9 fL (7.4-10.4); RBC 3.17 10x6/uL (4.20-6.10); RDW 16.6 % (11.5-14.5)
[2019-04-21 06:03] LABS: ALBUMIN 2.2 g/dL (3.4-5.0); ALKALINE PHOSPHATASE 61 U/L (46-116); ALT (SGPT) 53 U/L (10-68); BILIRUBIN - TOTAL 1.31 mg/dL (0.2-1.3); CALC OSMOLALITY 277 mosm/kg (275-300); CALCIUM 7.7 mg/dL (8.5-10.1); CARBON DIOXIDE 25.7 mmol/L (21.0-32.0); CHLORIDE - SERUM 106 mmol/L (98-107); CREATININE - SERUM 0.8 mg/dL (0.6-1.3); GLUCOSE 151 mg/dL (74-106); POTASSIUM - SERUM 3.7 mmol/L (3.5-5.1); PROTEIN - SERUM 6.4 g/dL (6.4-8.2); SODIUM 138 mmol/L (136-145); UREA NITROGEN 10 mg/dL (7-18); eGFR NON AFRICAN AMERICAN > 90 mL/min (90-120)
--- NOTE | 2019-04-21 07:20 | NUR ---
PT UP IN CHAIR. RATES PAIN 2/10 ABDOMINAL INCISION. NGT ON RIGHT NARE TO LIWS. WALTERS IN PLACE WITH CONCENTRATED URINE NOTED. BILATERAL GROIN INCISION WITH DRESSING C/D/I. EPIDURAL IN PLACE WITH 8ML/HR CONTINUES AND 5ML PCEA DOSE Q 20MIN. SHIFT ASSESSMENT COMPLETED. WILL CONTINUE TO MONITOR.
--- NOTE | 2019-04-21 07:55 | NUR ---
DR. DUKE CAME BY. ORDERED EPIDURAL TO BE DISCONTINUED AND PHYSICAL THERAPY CONSULT. LEAVE NGT IN FOR NOW. DR. SHEPARD NOTIFIED OF NEED TO REMOVE EPIDURAL.
--- NOTE | 2019-04-21 08:03 | NUR ---
ANESTHESIA AT BEDSIDE TO DC EPIDURAL.
--- NOTE | 2019-04-21 09:23 | NUR ---
MORPHINE RETAIL CLIENT SOLUTIONS ANALYST INITIATED AT THIS TIME PER ORDERS. WILL CONTINUE TO MONITOR.
--- NOTE | 2019-04-21 10:13 | NUR ---
Nutrition Follow Up: Chart reviewed. Pt is POD 3 and continues NPO. No BM since admit Wt stable I>O Labs reviewed Meds noted including Thiamine Rec advancing PAULINA when medically feasible. If diet unable to advance within the next 24-48 hours rec start nutrition support. NPO/Clear Liquids not rec > [address] following.
--- NOTE | 2019-04-21 10:15 | NUR ---
SBP CONTINUES IN 140S AND 150S. APRESOLINE GIVEN PER ORDERS. WILL CONTINUE TO MONITOR.
--- NOTE | 2019-04-21 11:27 | NUR ---
ASSISTED PT BACK TO BED. SAT UP IN CHAIR FOR ABOUT 4HR. LEAD BURNER SUPERVISOR NOT CONTROLLING PAIN AT THIS TIME. DIEGO CHA AWARE. WILL CONTINUE TO MONITOR.
--- NOTE | 2019-04-21 12:07 | NUR ---
RATES PAIN 7/10. TORODAL GIVEN PER ORDERS. FENTANYL PATCH NOT AVAILABLE IN UNIT. PHARMACY AWARE. WILL PROVIDE FENTANYL PATCH SOON AVAILABLE IN UNIT.
--- NOTE | 2019-04-21 14:30 | NUR ---
FENTANYL PATCH PLACED ON LEFT UPPER BACK PER ORDERS. PT UP IN CHAIR. RATES PAIN 4/10 INCISIONAL. WILL CONTINUE TO MONITOR.
--- NOTE | 2019-04-21 17:30 | NUR ---
WALTERS CARE PROVIDED AT THIS TIME PER PROTOCOL. PT REFUSED BATH. SPOUSE WILL HELP HIM BATHE IN THE MORNING.
--- NOTE | 2019-04-21 18:28 | NUR ---
MIDABDOMINAL DRESSING CHANGED AT THIS TIME. INCISION EDGES WELL APPROXIMATED. NO REDNESS OR SWELLING NOTED. PT RATES PAIN 3.5-4 OUT OF 10. TORADOL GIVEN AT THIS TIME. PB SLIGHTLY ELEVATED. WILL CONTINUE TO MONITOR AND TREAT.
--- NOTE | 2019-04-21 19:00 | NUR ---
SHIFT ASSESSMENT COMPLETE. PT IS A&O X4 AND RATES HIS PAIN A 3/10, INCISIONAL. MANAGER RADIATION BUTTON WITHIN REACH. PERRLA, 3 MM, BRISK REACTION TO LIGHT. NGT R NARE LIWS, GREEN BILE NOTED IN COLLECTION CHAMBER. R IJ CVL DRESSING CDI, INFUSING D5 1/2 NS +20 MEQ KCL @ 100 ML/HR, NITRO @ 16 MCG (4.8 ML/HR), AND FENTANYL MANAGER RADIATION @ 1 MG Q10M WITH A MAX DOSE OF 24 MG/4H. S1S2 AUDIBLE, HR 102 SINUS TACH SHOWING ON MONITOR. RR EVEN AND UNLABORED, ROOM AIR, O2 SAT 98%. MIDLINE ABD INCISION CDI. B/L GROIN DRESSINGS CDI, SOFT TO PALPATION. CRITICORE WALTERS CATH INTACT DRAINING VIN URINE. RADIAL AND PEDAL PULSES PALP. IS USE X10, [id number] ML, GOOD EFFORT. TURN COUGH DEEP BREATHE EXERCISE. EDUCATION PROVIDED. CALL LIGHT IN REACH, BED IN LOWEST POSITION. VSS. NO FURTHER NEEDS AT THIS TIME.
--- NOTE | 2019-04-21 20:00 | NUR ---
PM MEDS GIVEN WITHOUT DIFFICULTY. IS USE X10, [id number] ML, GOOD EFFORT.
--- NOTE | 2019-04-21 21:00 | NUR ---
PT ABLE TO REPOSITION HIMSELF. NO NEEDS AT THIS TIME. HE IS LYING IN BED WATCHING TV. PAIN CONTROLLED BY AEROSPACE PROJECT MANAGER. WILL CONT TO MONITOR CLOSELY.
--- NOTE | 2019-04-21 23:00 | NUR ---
REASSESSMENT COMPLETE. PLACED 2L/MIN VIA NC ON PT DUE TO DESAT WHEN SLEEPING, RR SHALLOW. CLEAR LUNG SOUNDS HEARD BILAT THROUGHOUT ALL LOBES. PT STATES THAT HE IS HAVING 4/10 INCISIONAL PAIN. ENCOURAGED OFFICE SYSTEMS TECHNOLOGY INSTRUCTOR USE. OFFICE SYSTEMS TECHNOLOGY INSTRUCTOR BUTTON IN HAND. TCDB EXERCISES, GOOD EFFORT. IS USE X10 [phone] ML, GOOD EFFORT. NO FURTHER CHANGES AT THIS TIME. VSS. WILL CONT WITH POC.
[2019-04-22] VITALS (56 sets, daily range): BP systolic 109–163; BP diastolic 58–90
--- NOTE | 2019-04-22 01:00 | NUR ---
PT RESTING PEACEFULLY WITH NO SIGNS OF ACUTE DISTRESS NOTED. VSS. WILL CONT WITH POC.
--- NOTE | 2019-04-22 03:00 | NUR ---
REASSESSMENT COMPLETE. VSS. NO CHANGES IN PT CONDITION. SEE FLOWSHEET FOR FURTHER DETIALS. WILL CONT WITH POC.
--- NOTE | 2019-04-22 05:00 | NUR ---
AT BEDSIDE. UPDATED PT AND ON CURRENT PLAN OF CARE. NO FURTHER NEEDS AT THIS TIME. VSS. WILL CONT WITH POC.
[2019-04-22 05:47] LABS: BASOPHILS 0.2 % (0-2); EOSINOPHILS 2.7 % (0-7); HEMATOCRIT 30.1 % (42.0-54.0); HEMOGLOBIN 10.1 g/dL (13.5-17.5); IMMATURE GRANULOCYTES 0.3 % (0-5); MCH 32.1 pg (26.0-34.0); MCHC 33.6 g/dL (31.0-37.0); MCV 95.6 fL (80.0-100.0); MEAN PLATELET VOLUME 8.9 fL (7.4-10.4); MONOCYTES 9.1 % (2-11); NEUTROPHILS 72.7 % (40-80); RBC 3.15 10x6/uL (4.20-6.10); RDW 16.1 % (11.5-14.5)
[2019-04-22 05:51] LABS: PLATELET COUNT 206 10x3/uL (130-400)
[2019-04-22 06:05] LABS: ALBUMIN 2.2 g/dL (3.4-5.0); ALKALINE PHOSPHATASE 65 U/L (46-116); ALT (SGPT) 46 U/L (10-68); BILIRUBIN - TOTAL 1.16 mg/dL (0.2-1.3); CALC OSMOLALITY 280 mosm/kg (275-300); CALCIUM 8.2 mg/dL (8.5-10.1); CARBON DIOXIDE 25.8 mmol/L (21.0-32.0); CHLORIDE - SERUM 106 mmol/L (98-107); CREATININE - SERUM 0.9 mg/dL (0.6-1.3); GLUCOSE 149 mg/dL (74-106); PROTEIN - SERUM 6.5 g/dL (6.4-8.2); SODIUM 139 mmol/L (136-145); UREA NITROGEN 12 mg/dL (7-18); eGFR NON AFRICAN AMERICAN > 90 mL/min (90-120)
--- NOTE | 2019-04-22 13:21 | NUR ---
1145: Dr. Rogers here. New orders rec'd. 1150: IVF decreased to 75cc/hr. NTG dc'd 1152: NGT dc'd. 1154: Jh dc'd. 1155: IV started L wrist with 20G on 1st attempt. IVF and WEBSITE ADMIN to site.
--- NOTE | 2019-04-22 16:53 | NUR ---
1515: Kay DRISCOLL. SITE DRESSED WITH 2X2.
--- NOTE | 2019-04-22 17:00 | NUR ---
AMBULATING WITH AROUND UNIT. 1730: BLANCHE BATH DONE PER SELF.
--- NOTE | 2019-04-22 19:15 | NUR ---
REPORT REC'D, PT'S CARE ASSUMED. ASSESSMENT COMPLETED PER FLOWSHEETS. PT AWAKE AND ALERT. DENIES ANY DISCOMFORT AT THIS TIME. SR ON CM, LUNG SOUNDS DIMINSIHED TO LLB, UNLABORED. ABD MIDLINE INCISION WITH STAPLE INTACT. B/L GROIN DRESSING C,D,I. LEFT PP WEAK. REPOSITIONED SELF IN BED FOR COMFORT. HOB UP. BED IN LOW POSITIONED AND LOCKED. CALL LIGHT IN REACH. CONT TO MONITOR.
--- NOTE | 2019-04-22 21:00 | NUR ---
NO VISITORS AT THIS TIME. PT WATCHING TV. NO NEEDS VOICES. VSS. CPOC.
--- NOTE | 2019-04-22 23:00 | NUR ---
ASSISTED TO BATHROOM. PT VOIDS WITHOUT DIFFIC. NO BM PER PT, JUST FLATULANCE RESULTED. BACK TO BED WITHOUT DIFFIC. PT PRIYANKA WELL. CPOC.
[2019-04-23] VITALS (11 sets, daily range): BP systolic 119–154; BP diastolic 58–92
--- NOTE | 2019-04-23 01:00 | NUR ---
ASSISTED TO BR, PT PRIYANKA WELL. VOIDS WITHOUT DIFFIC. NO BM. BACK TO CHAIR. PT REQUESTED TO SIT IN CHAIR. CM ATTACHED. CALL LIGHT IN REACH. CPOC.
--- NOTE | 2019-04-23 03:00 | NUR ---
PT SITTING IN CHAIR WATCHING TV, NO ACUTE CHAGNES NOTED IN PT' CONDITION. VSS. CPOC.
--- NOTE | 2019-04-23 04:30 | NUR ---
PT WALKED DOWN THE HALLWAY WITHOUT ANY DISTRESS NOTED. NO C/O.
[2019-04-23 05:46] LABS: BASOPHILS 0.2 % (0-2); EOSINOPHILS 3.1 % (0-7); HEMATOCRIT 32.3 % (42.0-54.0); IMMATURE GRANULOCYTES 0.3 % (0-5); MCHC 34.1 g/dL (31.0-37.0); MCV 93.9 fL (80.0-100.0); MEAN PLATELET VOLUME 8.9 fL (7.4-10.4); MONOCYTES 11.5 % (2-11); NEUTROPHILS 67.9 % (40-80); PLATELET COUNT 235 10x3/uL (130-400); RBC 3.44 10x6/uL (4.20-6.10); RDW 15.6 % (11.5-14.5); WBC 9.1 10x3/uL (4.8-10.8)
[2019-04-23 06:12] LABS: ALBUMIN 2.4 g/dL (3.4-5.0); ALKALINE PHOSPHATASE 69 U/L (46-116); ALT (SGPT) 49 U/L (10-68); BILIRUBIN - TOTAL 1.77 mg/dL (0.2-1.3); CALC OSMOLALITY 272 mosm/kg (275-300); CALCIUM 8.7 mg/dL (8.5-10.1); CARBON DIOXIDE 25.7 mmol/L (21.0-32.0); CHLORIDE - SERUM 103 mmol/L (98-107); CREATININE - SERUM 0.8 mg/dL (0.6-1.3); POTASSIUM - SERUM 3.8 mmol/L (3.5-5.1); PROTEIN - SERUM 6.9 g/dL (6.4-8.2); SODIUM 137 mmol/L (136-145); UREA NITROGEN 12 mg/dL (7-18); eGFR NON AFRICAN AMERICAN > 90 mL/min (90-120)
[2019-04-23 06:15] LABS: GLUCOSE 87 mg/dL (74-106)
[2019-04-23] MEDS ORDERED: LOPRESSOR25 MG PO (10:34)
[2019-04-23] MEDS ORDERED: NORCO-10 PO (10:35)
[2019-04-23] MEDS ORDERED: Duragesic TRANSDERM (10:36)
--- NOTE | 2019-04-23 10:49 | NUR ---
EVERY OTHER STAPLE REMOVED FROM ABD INCISION.
--- NOTE | 2019-04-23 13:06 | NUR ---
1130: SALINE LOCK Hanna WRIST ALEKSANDER'D. 1250: DISCHARGE INSTRUCTIONS REVIEWED WITH PATIENT AND . 1300: DISCHARGED HOME WITH . ESCORTED TO PRIVATE VEHICLE.
--- NOTE | 2019-04-25 15:03 | MORECARE ---
CASE MANAGEMENT DISCHARGE SUMMARY PATIENT: CHAIM HORTON UNIT: [id number] ADM DATE: 04/18/19 AGE: 53 : 67 SEX: M ROOM/BED: [id number] AUTHOR: MARCELA CHAHAL PHYSICIAN: REFERRING PHYSICIAN: JASON DUKE MD DATE OF SERVICE: 04/25/19 Discharge Plan Patient Name: CHAIM HORTON Facility: [facility]:[place] : 1965 Planned Disposition: Home Anticipated Discharge Date: Discharge Date: 04/23/2019 Expected LOS: Initial Reviewer: [email or web address] Initial Review Date: 04/18/2019 Generated: 04/25/19 4:03 pm DCP- Discharge Planning Updated by [email or web address]: Melyssa Schroeder on 04/18/19 4:[address] Patient Name: CHAIM HORTON Admission Status: Elective Accout number: [id number] Admission Date: 04-18-2019 : 1965 Admission Diagnosis: Attending: JASON DUKE Current LOS: 1 Anticipated DC Date: Planned Disposition: Home Primary Insurance: [employer] OUT OF STATE Discharge Planning Comments: CM met with patient and spouse (Radha) at bedside after explaining CM role and obtaining verbal consent. Patient lives at home with his Radha and plans to return there upon discharge. Patient feels this would be a safe discharge. CM discussed availability / needs of home health and medical equipment. Patient denies any discharge needs at this time. Patient states he will have his drive him home upon discharge. CM will continue to follow and assist as needed with discharge planning / needs. Logistics Coordinator: Melyssa Schroeder DCPIA - Discharge Planning Initial Assessment Updated by [email or web address]: Melyssa Schroeder on 04/18/19 5:39 pm * Is the patient Alert and Oriented? Yes * How many steps to enter\exit or inside your home? * PCP Xiomara * Pharmacy [facility] [address] * Preadmission Environment Home with Family * ADLs Independent * Equipment None * List name and contact numbers for known caregivers / representatives who currently or will assist patient after discharge: Radha Horton - Spouse - [phone] * Verbal permission to speak to the caregivers and representatives has been obtained from the patient. N/A * Community resources currently utilized None * Additional services required to return to the preadmission environment? No * Can the patient safely return to the preadmission environment? Yes * Has this patient been hospitalized within the prior 30 days at any hospital? No Last DP export: 04/18/19 4:45 p Patient Name: CHAIM HORTON Page [id number] at 1503 All edits/amendments must be made on the electronic document DICTATION DATE: 04/25/19 1503 HEEL ATTACHER: DERREK 04/25/19 1503 RPT#: [id number] DC DATE:04/23/19 STATUS: DIS IN [id number] [place] [address] END OF REPORT
== END 2019-04-23 13:00 | disposition home or self-care (01) | DRG 271 ==
LOC: D.SDCHOLD 09:00 → D.CVICU 04-18 05:00 → D.SDCHOLD 04-18 05:00 → D.CVICU 04-18 12:00
PROVIDERS: ADMIT Thoracic Surgery (Cardiothoracic Vascular Surgery); ATTEND Thoracic Surgery (Cardiothoracic Vascular Surgery)
PROC: 021W0JV Bypass Thoracic Aorta, Descending to Lower Extremity Artery with Synthetic Substitute, Open Approach (ICD-10-PCS; principal; 2019-04-18 07:30)
DX: I74.09 Other arterial embolism and thrombosis of abdominal aorta (principal); I74.5 Embolism and thrombosis of iliac artery; E80.1 Porphyria cutanea tarda; F10.20 Alcohol dependence, uncomplicated; M19.90 Unspecified osteoarthritis, unspecified site; K21.9 Gastro-esophageal reflux disease without esophagitis; Z87.891 Personal history of nicotine dependence

== ENCOUNTER → 2019-09-20 13:51 | Outpatient (CLI) | payer BC ==
[2019-04-19 08:05] VITALS: BMI 26.1
[~2019-09-20 13:51] MED LIST changes: +Duragesic TRANSDERM; +LOPRESSOR25 MG PO; +NORCO-10 PO; +VITAMIN B COMPLEX PO
== END | disposition home or self-care (01) ==
LOC: D.US 13:51
PROVIDERS: ATTEND Thoracic Surgery (Cardiothoracic Vascular Surgery)
DX: I73.9 Peripheral vascular disease, unspecified (principal)